=== PATIENT | male | born 1940 | race Caucasian/White ===

== ENCOUNTER 2018-04-12 08:37 | Emergency (ER) | payer MEDICARE, MEDICAID ==
[2018-04-12 08:46] VITALS: BP 171/76
[2018-04-12] MEDS ORDERED: Oxymetazoline 0.05% Nasal Spray 15 ML Bottle NAS ONE (08:49)
--- NOTE | 2018-04-12 09:35 | EDM.PDOC ---
ED HPI GENERAL MEDICAL PROBLEM - General Chief Complaint: ENT Problem Stated Complaint: NOSE BLEED Time Seen by Provider: 04/12/18 08:49 Source of Information: Reports: Patient History Limitations: Reports: No Limitations - History of Present Illness INITIAL COMMENTS - FREE TEXT/NARRATIVE: The patient presents with a nose bleed. This started this morning. It stopped and then it came back. It quit by the time he came in this morning. He has a history of nose bleeds. He has no trauma to his nose. He is not on any blood thinners. His blood pressure looks good. Onset: Sudden Duration: Hour(s): Severity: Moderate Improves with: Reports: None Worsens with: Reports: None Associated Symptoms: Reports: No Other Symptoms - Related Data Allergies Allergy/AdvReac Type Severity Reaction Status Date / Time codeine Allergy Cannot Verified 04/12/18 08:43 Remember Home Meds: Home Meds Atenolol [Tenormin] 07/26/15 [History] Dutasteride [Avodart] 07/26/15 [History] Lisinopril [Prinivil] 07/26/15 [History] Montelukast [Singulair] 07/26/15 [History] atorvaSTATin [Lipitor] 07/26/15 [History] Past Medical History HEENT History: Reports: Epistaxis, Impaired Vision Cardiovascular History: Reports: High Cholesterol, Hypertension Respiratory History: Reports: COPD Genitourinary History: Reports: Prostate Disorder Musculoskeletal History: Reports: Arthritis Oncologic (Cancer) History: Reports: Other (See Below) Other Oncologic History: occular - Past Surgical History HEENT Surgical History: Reports: Other (See Below) Musculoskeletal Surgical History: Reports: Hip Replacement Social & Family History - Tobacco Use Smoking Status *Q: Former Smoker Used Tobacco, but Quit: Yes Month/Year Tobacco Last Used: 1999 ED ROS ENT - Review of Systems Review Of Systems: See Below Constitutional: Reports: No Symptoms HEENT: Reports: Nosebleed Respiratory: Reports: No Symptoms Cardiovascular: Reports: No Symptoms Endocrine: Reports: No Symptoms GI/Abdominal: Reports: No Symptoms : Reports: No Symptoms Musculoskeletal: Reports: No Symptoms Neurological: Reports: No Symptoms ED EXAM, ENT - Physical Exam Exam: See Below Exam Limited By: No Limitations General Appearance: Alert, No Apparent Distress Ears: Normal External Exam Nose: Active Bleeding (mild bleeding from the anterior septum in the left nostril) Head: Atraumatic, Normocephalic Neck: Normal Inspection Respiratory/Chest: No Respiratory Distress ED ENT PROCEDURES - Epistaxis Procedure Indication: Epistaxis Recent anticoagulants/antiplatlets: No Uncontrolled HTN: No Recent septal/nasal surgery: No Site of bleeding: Left Nare, Anterior Topical Meds: Other (Afrin) Ice pack to area: No Chemical cautery: Silver Nitrate Topical Complications: No Course - Vital Signs Last Recorded V/S: Last Vital Signs Temp 97.4 F 04/12/18 08:44 Pulse 76 04/12/18 08:44 Resp 18 04/12/18 08:44 BP 171/76 H 04/12/18 08:44 Pulse Ox 96 04/12/18 08:44 - Orders/Labs/Meds Meds: Medications Discontinued Medications Generic Name Dose Route Start Last Admin Trade Name Freq PRN Reason Stop Dose Admin Oxymetazoline HCl 1 ml 04/12/18 08:49 04/12/18 08:52 Afrin Original 0.05% Nasal [place] MAIDA 04/12/18 08:50 2 spray ONETIME ONE Administration - Re-Assessments/Exams Free Text/Narrative Re-Assessment/Exam: 04/12/18 09:33 I used some silver nitrate to stop the bleeding. He is doing good. I will put some antibiotic ointment in each nostril and have him follow up with ENT. Departure - Departure Time of Disposition: 09:35 Disposition: Home, Self-Care 01 Condition: Good Clinical Impression: Epistaxis - Discharge Information *PRESCRIPTION DRUG MONITORING PROGRAM REVIEWED*: Not Applicable *COPY OF PRESCRIPTION DRUG MONITORING REPORT IN PATIENT NOEMY: Not Applicable Referrals: Kath Stone MD [Primary Care Provider] - 1 Week Additional Instructions: Put antibiotic ointment in each nostril 2 times per day for 3 days. Follow up with your doctor for a referral to ENT. Please return if you are worse.
== END 2018-04-12 09:51 | disposition home or self-care (01) ==
LOC: JD.ED 08:37
DX: R04.0 Epistaxis (principal); I10 Essential (primary) hypertension; E78.00 Pure hypercholesterolemia, unspecified; Z88.5 Allergy status to narcotic agent
CPT/HCPCS: 30901; 99283; A9270

== ENCOUNTER 2018-07-01 08:34 | Emergency (ER) | payer MEDICARE, MEDICAID ==
[2018-07-01 08:45] VITALS: BP 155/90
--- NOTE | 2018-07-01 09:03 | EDM.PDOC ---
ED HPI GENERAL MEDICAL PROBLEM - General Chief Complaint: ENT Problem Stated Complaint: NOSE BLEED Time Seen by Provider: 07/01/18 08:54 Source of Information: Reports: Patient History Limitations: Reports: No Limitations - History of Present Illness INITIAL COMMENTS - FREE TEXT/NARRATIVE: 77-year-old male presents to the ED with sudden onset of left-sided nosebleed about 0755 hrs. this morning. No known trauma. Spontaneous occurrence which is happened several times in the past. He has seen ENT in consultation and it has had electrocautery therapy in the past. Is currently on no aspirin or blood thinners. No recent colds coughs or upper respiratory tract infection. Onset: Today Onset Date: 07/01/18 Onset Time: 07:55 Duration: Minutes: Location: Reports: Face Quality: Reports: Other Severity: Moderate (No pain) Improves with: Reports: Other (Firm pressure seem to help get it stopped.) Worsens with: Reports: None Context: Reports: Other. 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: Other (see below) (None.) - Related Data Allergies Allergy/AdvReac Type Severity Reaction Status Date / Time codeine Allergy Cannot Verified 07/01/18 08:41 Remember Home Meds: Home Meds Atenolol [Tenormin] 25 mg PO DAILY 07/26/15 [History] Dutasteride [Avodart] 0.5 mg PO DAILY 07/26/15 [History] Lisinopril [Prinivil] 5 mg PO DAILY 07/26/15 [History] Montelukast [Singulair] 10 mg PO DAILY 07/26/15 [History] atorvaSTATin [Lipitor] 20 mg PO DAILY 07/26/15 [History] FLUoxetine [PROzac] 10 mg PO DAILY 04/12/18 [History] Isosorbide Mononitrate [Imdur] 30 mg PO DAILY 04/12/18 [History] Omeprazole 20 mg PO BIDAC 04/12/18 [History] Fluticasone/Vilanterol [Breo Ellipta 200-25 Mcg INH] 1 puff INH DAILY 07/01/18 [ History] Latanoprost/Pf [Latanoprost 0.005% Eye Drop] 1 drop EYEBOTH BEDTIME 07/01/18 [ History] Past Medical History HEENT History: Reports: Epistaxis (Recurrent epistaxis left side.), Impaired Vision Cardiovascular History: Reports: Angina, High Cholesterol, Hypertension Respiratory History: Reports: COPD Genitourinary History: Reports: Prostate Disorder (On Avodart for this.) Musculoskeletal History: Reports: Arthritis Oncologic (Cancer) History: Reports: Other (See Below) Other Oncologic History: occular - Past Surgical History HEENT Surgical History: Reports: Other (See Below) Musculoskeletal Surgical History: Reports: Hip Replacement Social & Family History - Tobacco Use Smoking Status *Q: Never Smoker - Caffeine Use Caffeine Use: Reports: Coffee - Recreational Drug Use Recreational Drug Use: No - Living Situation & Occupation Living situation: Reports: Single Occupation: Retired ED ROS ENT - Review of Systems Review Of Systems: See Below Constitutional: Denies: Fever, Chills, Malaise, Weakness, Fatigue, Decreased Appetite, Weight Loss HEENT: Reports: Nosebleed (Recurrent problems with left nasal bleeding.) Respiratory: Denies: Shortness of Breath, Wheezing, Pleuritic Chest Pain Cardiovascular: Reports: Chest Pain, Blood Pressure Problem, Dyspnea on Exertion. Denies: Claudication, Edema, Lightheadedness, Orthopnea Endocrine: Reports: No Symptoms GI/Abdominal: Reports: No Symptoms : Reports: Frequency, Other Musculoskeletal: Reports: Joint Pain Skin: Reports: No Symptoms (Knees hips and low back.) Neurological: Reports: No Symptoms Psychiatric: Reports: No Symptoms Hematologic/Lymphatic: Reports: No Symptoms Immunologic: Reports: No Symptoms ED EXAM, ENT - Physical Exam Exam: See Below Exam Limited By: No Limitations General Appearance: Alert, WD/WN, No Apparent Distress Nose: Other (Inspection of the naris shows area of erythema with active bleeding from the anterior septum of the right naris. ) Mouth/Throat: Normal Inspection, Normal Gums Head: Atraumatic, Normocephalic Neck: Normal Inspection, Supple, Non-Tender, Full Range of Motion. No: Lymphadenopathy (L), Lymphadenopathy (R) Respiratory/Chest: No Respiratory Distress, Lungs Clear, Normal Breath Sounds, No Accessory Muscle Use, Chest Non-Tender Course - Vital Signs Last Recorded V/S: Last Vital Signs Temp 37.1 C 07/01/18 08:44 Pulse 75 07/01/18 08:44 Resp 18 07/01/18 08:44 BP 155/90 H 07/01/18 08:44 Pulse Ox 93 L 07/01/18 08:44 - Radiology Interpretation Free Text/Narrative:: 77-year-old male presents to the ED with acute left-sided nasal hemorrhage. This morning. He's had problems with left-sided nosebleed several times in the last few years. 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 Examination today reveals active bleeding from the very anterior superior surface of the nasal septum on the left side. Area was cauterized with silver nitrate which seemed to get under control. - Re-Assessments/Exams Free Text/Narrative Re-Assessment/Exam: 07/01/18 09:08 upon reviewed no further bleeding has occurred. Therefore be discharged to home. He already has a AYR gel at home which you placement of the nares once daily at bedtime. Follow-up as necessary. Departure - Departure Time of Disposition: 09:09 Disposition: Home, Self-Care 01 Condition: Fair Clinical Impression: Anterior epistaxis - Discharge Information *PRESCRIPTION DRUG MONITORING PROGRAM REVIEWED*: No *COPY OF PRESCRIPTION DRUG MONITORING REPORT IN PATIENT NOEMY: No Instructions: Nosebleed, [id number] Referrals: Kath Stone MD [Primary Care Provider] - Forms: ED Department Discharge Additional Instructions: Evaluation the emergency room today in regards to development of a left-sided nosebleed shortly before 8:00 this morning. This is again on the left side which is almost always decide the bleeds on. Examination reveals active bleeding from the anterior nasal septum. This area was cauterized with silver nitrate to bring it under control. On review no further bleeding is evident. Treatment is to use AYR gel into both sides of the nose at bedtime for the next week or Polysporin ointment. Ointment is placed with the aid of a Q-tip up into the nose and does the same thing. Follow-up with ENT surgeon if further bleeding continues.
== END 2018-07-01 09:25 | disposition home or self-care (01) ==
LOC: JD.ED 08:34
DX: R04.0 Epistaxis (principal); I10 Essential (primary) hypertension; E78.00 Pure hypercholesterolemia, unspecified; M19.90 Unspecified osteoarthritis, unspecified site; Z79.899 Other long term (current) drug therapy; Z88.5 Allergy status to narcotic agent
CPT/HCPCS: 30901; 99283-25

== ENCOUNTER 2018-09-29 12:14 | Observation (INO) | payer MEDICARE, MEDICAID ==
[2018-09-29] MEDS ORDERED: Sodium Chloride 0.9% 10 ML Syringe FLUSH PRN (12:39)
[2018-09-29] MEDS ORDERED: Sodium Chloride 0.9% 1,000 ML IV ONE (12:49)
--- NOTE | 2018-09-29 12:55 | EDM.PDOC ---
ED HPI GENERAL MEDICAL PROBLEM - General Chief Complaint: Respiratory Problem Stated Complaint: SOB/CHILLS/ BACK PAIN Time Seen by Provider: 09/29/18 12:40 Source of Information: Reports: Patient History Limitations: Reports: No Limitations - History of Present Illness INITIAL COMMENTS - FREE TEXT/NARRATIVE: 77-year-old male presents for evaluation and treatment of cough, shortness of breath and chills. Symptoms have been going on for the last 4 days. Current symptoms include dyspnea on exertion, shortness of breath, nausea and a nonproductive cough. He is also reporting pain across his upper back. Denies any chest pain, vomiting, diarrhea or abdominal pain. Patient did get influenza vaccine this season. PCP is Dr. Stone. bilateral shoulders Pain Score (Numeric/FACES): 4 - Related Data Allergies Allergy/AdvReac Type Severity Reaction Status Date / Time codeine Allergy Cannot Verified 09/29/18 12:29 Remember Home Meds: Home Meds Atenolol [Tenormin] 25 mg PO DAILY 07/26/15 [History] Dutasteride [Avodart] 0.5 mg PO DAILY 07/26/15 [History] Lisinopril [Prinivil] 5 mg PO DAILY 07/26/15 [History] Montelukast [Singulair] 10 mg PO DAILY 07/26/15 [History] atorvaSTATin [Lipitor] 20 mg PO DAILY 07/26/15 [History] FLUoxetine [PROzac] 10 mg PO DAILY 04/12/18 [History] Isosorbide Mononitrate [Imdur] 30 mg PO DAILY 04/12/18 [History] Omeprazole 20 mg PO BIDAC 04/12/18 [History] Fluticasone/Vilanterol [Breo Ellipta 200-25 Mcg INH] 1 puff INH DAILY 07/01/18 [ History] Latanoprost/Pf [Latanoprost 0.005% Eye Drop] 1 drop EYEBOTH BEDTIME 07/01/18 [ History] Past Medical History HEENT History: Reports: Epistaxis, Hard of Hearing, Impaired Vision Cardiovascular History: Reports: Angina, High Cholesterol, Hypertension Respiratory History: Reports: COPD, SOB Gastrointestinal History: Reports: GERD Genitourinary History: Reports: Prostate Disorder Musculoskeletal History: Reports: Arthritis Psychiatric History: Reports: Anxiety Oncologic (Cancer) History: Reports: Other (See Below) Other Oncologic History: occular - Infectious Disease History Infectious Disease History: Reports: Influenza, Measles - Past Surgical History HEENT Surgical History: Reports: Other (See Below) Musculoskeletal Surgical History: Reports: Hip Replacement Social & Family History - Family History Family Medical History: Noncontributory - Tobacco Use Smoking Status *Q: Former Smoker Used Tobacco, but Quit: No - Caffeine Use Caffeine Use: Reports: Coffee - Recreational Drug Use Recreational Drug Use: No - Living Situation & Occupation Living situation: Reports: Single Occupation: Retired ED ROS GENERAL - Review of Systems Review Of Systems: See Below Constitutional: Reports: Chills, Weakness. Denies: Fever HEENT: Denies: Ear Pain, Throat Pain Respiratory: Reports: Shortness of Breath, Cough. Denies: Sputum Cardiovascular: Reports: Dyspnea on Exertion. Denies: Chest Pain GI/Abdominal: Reports: Nausea. Denies: Abdominal Pain, Diarrhea, Vomiting Musculoskeletal: Reports: Back Pain (upper back) ED EXAM, GENERAL - Physical Exam Exam: See Below Exam Limited By: No Limitations General Appearance: Alert, WD/WN, No Apparent Distress Ears: Normal External Exam Nose: Normal Inspection Throat/Mouth: Normal Inspection, Normal Lips, Normal Voice, No Airway Compromise Respiratory/Chest: No Respiratory Distress, Lungs Clear, Normal Breath Sounds Cardiovascular: Normal Peripheral Pulses, No Murmur, Tachycardia Peripheral Pulses: 2+: Posterior Tibial (L), Posterior Tibial (R) GI/Abdominal: Soft, Non-Tender Neurological: Alert, Oriented, Normal Cognition Psychiatric: Normal Affect, Normal Mood Skin Exam: Warm, Dry, Normal Color EKG INTERPRETATION EKG Date: 09/29/18 Time: 13:47 Rhythm: NSR Rate (Beats/Min): 97 [place]: LAD-Left [place] Deviation P-Wave: Present QRS: Normal ST-T: Normal QT: Normal EKG Interpretation Comments: NSR at 97 bpm. First degree AV block. No atrial enlargement. Slight J-point elevation in V2, but no T wave inversion. No ischemic changes. Late transition. Left axis deviation. Left ventricular hypertrophy. No IVCD. QTc within normal limits at 459. Reviewed by myself and Dr. Mart. Course - Vital Signs Last Recorded V/S: Last Vital Signs Temp 101.6 F H 09/29/18 13:50 Pulse 105 H 09/29/18 12:18 Resp 34 H 09/29/18 12:37 BP 168/78 H 09/29/18 12:18 Pulse Ox 95 09/29/18 13:45 - Orders/Labs/Meds Orders: Active Orders 24 hr Category Date Time Status Patient Status [ADT] Routine ADT 09/29/18 14:33 Ordered Cardiac Monitoring [RC] . DIRECTED Care 09/29/18 12:39 Active EKG Documentation Completion [RC] ASDIRECTED Care 09/29/18 12:49 Active Oxygen Therapy [RC] ASDIRECTED Care 09/29/18 12:49 Active Peripheral IV Care [RC] . DIRECTED Care 09/29/18 12:39 Active RT Aerosol Therapy [RC] ASDIRECTED Care 09/29/18 13:45 Active CULTURE BLOOD [BC] Stat Lab 09/29/18 12:55 Received CULTURE BLOOD [BC] Stat Lab 09/29/18 13:00 Received CULTURE URINE [RM] Stat Lab 09/29/18 12:40 Ordered UA W/MICROSCOPIC [URIN] Stat Lab 09/29/18 12:39 Ordered Magnesium Sulfate/Water [Magnesium Sulfate 2 GM in Med 09/29/18 13:43 Active Water 50 ML] 2 gm Premix Bag 1 bag IV ONETIME Sodium Chloride 0.9% [Normal Saline] 1,000 ml Med 09/29/18 12:49 Active IV ONETIME Sodium Chloride 0.9% [Saline Flush] Med 09/29/18 12:39 Active 10 ml FLUSH ASDIRECTED PRN Blood Culture x2 Reflex Set [OM.PC] Stat Oth 09/29/18 12:40 Ordered Peripheral IV Insertion Adult [OM.PC] Routine Oth 09/29/18 12:39 Ordered EKG 12 Lead [EK] Stat Ther 09/29/18 12:49 Ordered Medication Orders Sodium Chloride (Normal Saline) 1,000 mls @ 100 mls/hr IV ONETIME ONE Stop: 09/29/18 22:48 Last Admin: 09/29/18 13:46 Dose: 100 mls/hr Magnesium Sulfate 2 gm/ Premix 50 mls @ 25 mls/hr IV ONETIME ONE Stop: 09/29/18 15:42 Last Admin: 09/29/18 13:52 Dose: 25 mls/hr Sodium Chloride (Saline Flush) 10 ml FLUSH ASDIRECTED PRN PRN Reason: Keep Vein Open Last Admin: 09/29/18 13:46 Dose: 10 ml Labs: Laboratory Tests 09/29/18 09/29/18 09/29/18 Range/Units 12:30 12:30 12:30 WBC 10.08 H (4.23-9.07) K/mm3 RBC 4.73 (4.63-6.08) M/mm3 Hgb 13.9 (13.7-17.5) gm/L Hct 41.4 (40.1-51.0) % MCV 87.5 (79.0-92.2) fl MCH 29.4 (25.7-32.2) pg MCHC 33.6 (32.2-35.5) g/dl RDW Std Deviation 41.7 (35.1-43.9) fL Plt Count 178 (163-337) K/mm3 MPV 10.6 (9.4-12.3) fl Neutrophils % (Manual) 91 H (40-60) % Band Neutrophils % 2 (0-10) % Lymphocytes % (Manual) 4 L (20-40) % Atypical Lymphs % 0 % Monocytes % (Manual) 1 L (2-10) % Eosinophils % (Manual) 0 L (0.8-7.0) % Basophils % (Manual) 2 H (0.2-1.2) Platelet Estimate Adequate RBC Morph Comment Normal Sodium 134 L (136-145) mEq/L Potassium 3.4 L (3.5-5.1) mEq/L Chloride 98 (98-107) mEq/L Carbon Dioxide 22 (21-32) mEq/L Anion Gap 17.4 H (5-15) BUN 15 (7-18) mg/dL Creatinine 1.1 (0.7-1.3) mg/dL Est Cr Clr Drug Dosing 49.14 mL/min Estimated GFR (MDRD) > 60 (>60) mL/min BUN/Creatinine Ratio 13.6 L (14-18) Glucose 174 H (83-115) mg/dL Lactic Acid (0.4-2.0) mmol/L Calcium 8.6 (8.5-10.1) mg/dL Magnesium 1.6 L (1.8-2.4) mg/dl Total Bilirubin 1.6 H (0.2-1.0) mg/dL AST 34 (15-37) U/L ALT 36 (16-63) U/L Alkaline Phosphatase 88 (46-116) U/L C-Reactive Protein 19.4 H* (<1.0) mg/dL NT-Pro-B Natriuret Pep 1813 H (0-450) pg/mL Total Protein 7.2 (6.4-8.2) g/dl Albumin 3.2 L (3.4-5.0) g/dl Globulin 4.0 gm/dL Albumin/Globulin Ratio 0.8 L (1-2) Mycoplasma pneumon IgM Negative (NEGATIVE) 09/29/18 Range/Units 12:55 WBC (4.23-9.07) K/mm3 RBC (4.63-6.08) M/mm3 Hgb (13.7-17.5) gm/L Hct (40.1-51.0) % MCV (79.0-92.2) fl MCH (25.7-32.2) pg MCHC (32.2-35.5) g/dl RDW Std Deviation (35.1-43.9) fL Plt Count (163-337) K/mm3 MPV (9.4-12.3) fl Neutrophils % (Manual) (40-60) % Band Neutrophils % (0-10) % Lymphocytes % (Manual) (20-40) % Atypical Lymphs % % Monocytes % (Manual) (2-10) % Eosinophils % (Manual) (0.8-7.0) % Basophils % (Manual) (0.2-1.2) Platelet Estimate RBC Morph Comment Sodium (136-145) mEq/L Potassium (3.5-5.1) mEq/L Chloride (98-107) mEq/L Carbon Dioxide (21-32) mEq/L Anion Gap (5-15) BUN (7-18) mg/dL Creatinine (0.7-1.3) mg/dL Est Cr Clr Drug Dosing mL/min Estimated GFR (MDRD) (>60) mL/min BUN/Creatinine Ratio (14-18) Glucose (83-115) mg/dL Lactic Acid 1.4 (0.4-2.0) mmol/L Calcium (8.5-10.1) mg/dL Magnesium (1.8-2.4) mg/dl Total Bilirubin (0.2-1.0) mg/dL AST (15-37) U/L ALT (16-63) U/L Alkaline Phosphatase (46-116) U/L C-Reactive Protein (<1.0) mg/dL NT-Pro-B Natriuret Pep (0-450) pg/mL Total Protein (6.4-8.2) g/dl Albumin (3.4-5.0) g/dl Globulin gm/dL Albumin/Globulin Ratio (1-2) Mycoplasma pneumon IgM (NEGATIVE) Meds: Medications Generic Name Dose Route Start Last Admin Trade Name Freq PRN Reason Stop Dose Admin Sodium Chloride 1,000 mls @ 100 mls/hr 09/29/18 12:49 09/29/18 13:46 Normal Saline IV 09/29/18 22:48 100 mls/hr ONETIME ONE Administration Magnesium Sulfate 2 gm/ Premix 50 mls @ 25 mls/hr 09/29/18 13:43 09/29/18 13: 52 IV 09/29/18 15:42 25 mls/hr ONETIME ONE Administration Sodium Chloride 10 ml 09/29/18 12:39 09/29/18 13:46 Saline Flush FLUSH 10 ml ASDIRECTED PRN Administration Keep Vein Open Discontinued Medications Generic Name Dose Route Start Last Admin Trade Name Freq PRN Reason Stop Dose Admin Acetaminophen 650 mg 09/29/18 13:42 09/29/18 13:50 Tylenol PO 09/29/18 13:43 650 mg NOW STA Administration Albuterol 2.5 mg 09/29/18 13:45 09/29/18 13:52 Proventil Neb Soln NEB 09/29/18 13:46 2.5 mg ONETIME ONE Administration Ceftriaxone Sodium 2 gm/ 100 mls @ 200 mls/hr 09/29/18 13:03 09/29/18 13:46 Sodium Chloride IV 09/29/18 13:32 200 mls/hr NOW STA Administration - Radiology Interpretation Free Text/Narrative:: Chest: Portable view of the chest was obtained. Comparison: No prior chest x-ray, previous chest CT of 01/04/13 is available. Incidental azygos lobe is seen. Heart size is slightly enlarged. Lungs are clear with no acute parenchymal change. Bony structures are grossly intact. Previous cholecystectomy is seen. Impression: 1. Slight cardiomegaly and other incidental findings. Nothing acute is appreciated on portable chest x-ray. - Re-Assessments/Exams Free Text/Narrative Re-Assessment/Exam: 09/29/18 14:26 Reviewed the labs, EKG and imaging with the patient. Even though his chest x- ray is negative at this time for pneumonia, I am highly suspicious with his dyspnea on exertion, cough, fever and slightly elevated white blood cell count. His oxygen sats were in the upper 80s to low 90s on room air upon arrival. With exertion he will drop into the 70s. I do feel he should be admitted. I did give him some Rocephin here in the ER. Blood and urine cultures are pending. Influenza is negative. Dr. Oneill has come to see the patient in the ED. Agrees to the observation admission. Departure - Departure Time of Disposition: 14:30 Disposition: Refer to Observation Condition: Fair Clinical Impression: Pneumonia, Hypomagnesemia, Hypoxia - Discharge Information *PRESCRIPTION DRUG MONITORING PROGRAM REVIEWED*: No *COPY OF PRESCRIPTION DRUG MONITORING REPORT IN PATIENT NOEMY: No Referrals: Kath Stone MD [Primary Care Provider] - Forms: ED Department Discharge Additional Instructions: Patient admitted to Dr. Oneill observation for suspected pneumonia with hypoxia and hypomagnesemia. - My Orders Last 24 Hours: My Active Orders 09/29/18 12:39 Cardiac Monitoring [RC] . DIRECTED Peripheral IV Care [RC] . DIRECTED UA W/MICROSCOPIC [URIN] Stat Sodium Chloride 0.9% [Saline Flush] 10 ml FLUSH ASDIRECTED PRN Peripheral IV Insertion Adult [OM.PC] Routine 09/29/18 12:40 CULTURE URINE [RM] Stat Blood Culture x2 Reflex Set [OM.PC] Stat 09/29/18 12:49 EKG Documentation Completion [RC] ASDIRECTED Oxygen Therapy [RC] ASDIRECTED Sodium Chloride 0.9% [Normal Saline] 1,000 ml IV ONETIME EKG 12 Lead [EK] Stat 09/29/18 12:55 CULTURE BLOOD [BC] Stat 09/29/18 13:00 CULTURE BLOOD [BC] Stat 09/29/18 13:43 Magnesium Sulfate/Water [Magnesium Sulfate 2 GM in Water 50 ML] 2 gm Premix Bag 1 bag IV ONETIME 09/29/18 13:45 RT Aerosol Therapy [RC] ASDIRECTED 09/29/18 14:33 Patient Status [ADT] Routine - Assessment/Plan Last 24 Hours: My Active Orders 09/29/18 12:39 Cardiac Monitoring [RC] . DIRECTED Peripheral IV Care [RC] . DIRECTED UA W/MICROSCOPIC [URIN] Stat Sodium Chloride 0.9% [Saline Flush] 10 ml FLUSH ASDIRECTED PRN Peripheral IV Insertion Adult [OM.PC] Routine 09/29/18 12:40 CULTURE URINE [RM] Stat Blood Culture x2 Reflex Set [OM.PC] Stat 09/29/18 12:49 EKG Documentation Completion [RC] ASDIRECTED Oxygen Therapy [RC] ASDIRECTED Sodium Chloride 0.9% [Normal Saline] 1,000 ml IV ONETIME EKG 12 Lead [EK] Stat 09/29/18 12:55 CULTURE BLOOD [BC] Stat 09/29/18 13:00 CULTURE BLOOD [BC] Stat 09/29/18 13:43 Magnesium Sulfate/Water [Magnesium Sulfate 2 GM in Water 50 ML] 2 gm Premix Bag 1 bag IV ONETIME 09/29/18 13:45 RT Aerosol Therapy [RC] ASDIRECTED 09/29/18 14:33 Patient Status [ADT] Routine
[2018-09-29] MEDS ORDERED: cefTRIAXone 2 GM in Sodium Chloride 0.9% 100 ML IV STA (13:03)
--- NOTE | 2018-09-29 13:32 | CR ---
Chest: Portable view of the chest was obtained. Comparison: No prior chest x-ray, previous chest CT of 01/04/13 is available. Incidental azygos lobe is seen. Heart size is slightly enlarged. Lungs are clear with no acute parenchymal change. Bony structures are grossly intact. Previous cholecystectomy is seen. Impression: 1. Slight cardiomegaly and other incidental findings. Nothing acute is appreciated on portable chest x-ray. Diagnostic code #2
[2018-09-29] MEDS ORDERED: Acetaminophen 325 MG Tab PO STA (13:42)
[2018-09-29] MEDS ORDERED: Magnesium Sulfate/Water 2 GM in Premix Bag 1 BAG IV ONE (13:43)
[2018-09-29] MEDS ORDERED: Albuterol 0.083% 2.5 MG/3 ML Neb Soln NEB ONE (13:45)
--- NOTE | 2018-09-29 17:19 | PCM.HP ---
H&P History of Present Illness - General Date of Service: 09/29/18 Admit Problem/Dx: Admission Diagnosis/Problem Admission Diagnosis/Problem Pneumonia Source of Information: Patient, Family, Provider - History of Present Illness Initial Comments - Free Text/Narative: 77 year old male with possible sick contact, presents with SOB, non productive cough. He admits to chills but denies fever. He has experienced generalized weakness, and shortness of breath. The patient has had the flu vaccine this season. He is a full code and will be admitted to observation. Onset of Symptoms: Reports: Gradual Symptom Onset Date: 09/22/18 Duration of Symptoms: Reports: Day(s):, Getting Worse Location: Reports: Chest Quality: Reports: Same as Previous Episode Severity: Moderate Improves with: Reports: Medication Worsens with: Reports: None Context: Reports: Sick Contact (unknown) Associated Symptoms: Reports: Cough, Fever/Chills, Loss of Appetite, Malaise, Nausea/Vomiting, Weakness bilateral shoulders Pain Score (Numeric/FACES): 4 - Related Data Allergies/Adverse Reactions: Allergies Allergy/AdvReac Type Severity Reaction Status Date / Time codeine Allergy Cannot Verified 09/29/18 12:29 Remember Home Medications: Home Meds Atenolol [Tenormin] 25 mg PO DAILY 07/26/15 [History] Dutasteride [Avodart] 0.5 mg PO DAILY 07/26/15 [History] Lisinopril [Prinivil] 2.5 mg PO DAILY 07/26/15 [History] Montelukast [Singulair] 10 mg PO DAILY 07/26/15 [History] atorvaSTATin [Lipitor] 20 mg PO DAILY 07/26/15 [History] FLUoxetine [PROzac] 10 mg PO DAILY 04/12/18 [History] Isosorbide Mononitrate [Imdur] 30 mg PO DAILY 04/12/18 [History] Omeprazole 20 mg PO BIDAC 04/12/18 [History] Fluticasone/Vilanterol [Breo Ellipta 200-25 Mcg INH] 1 puff INH DAILY 07/01/18 [ History] Latanoprost/Pf [Latanoprost 0.005% Eye Drop] 1 drop EYEBOTH BEDTIME 07/01/18 [ History] cycloSPORINE [Restasis] 1 drop EYEBOTH BID 09/29/18 [History] Past Medical History HEENT History: Reports: Epistaxis, Glaucoma, Hard of Hearing, Impaired Vision Cardiovascular History: Reports: Angina, High Cholesterol, Hypertension Respiratory History: Reports: COPD, SOB Gastrointestinal History: Reports: GERD Genitourinary History: Reports: Prostate Disorder Musculoskeletal History: Reports: Arthritis Psychiatric History: Reports: Depression Endocrine/Metabolic History: Reports: None Hematologic History: Reports: Blood Transfusion(s) Oncologic (Cancer) History: Reports: Other (See Below) Other Oncologic History: occular cancer, fixed with radiation therapy Dermatologic History: Reports: None - Infectious Disease History Infectious Disease History: Reports: Influenza, Measles, Mumps, Pertussis ( Whooping Cough) - Past Surgical History Cardiovascular Surgical History: Reports: Other (See Below) Other Cardiovascular Surgeries/Procedures: angiogram attempt but decided to not go ahead with stent placement d/t potential damage Respiratory Surgical History: Reports: None GI Surgical History: Reports: None Male Surgical History: Reports: None Musculoskeletal Surgical History: Reports: Hip Replacement Other Musculoskeletal Surgeries/Procedures:: bilateral Social & Family History - Family History Family Medical History: Noncontributory - Tobacco Use Smoking Status *Q: Former Smoker Years of Tobacco use: 30 Packs/Tins Daily: 2 Used Tobacco, but Quit: Yes Month/Year Tobacco Last Used: quit 20 years ago Second Hand Smoke Exposure: No - Caffeine Use Caffeine Use: Reports: Tea - Recreational Drug Use Recreational Drug Use: No - Living Situation & Occupation Living situation: Reports: Single Occupation: Retired H&P Review of Systems - Review of Systems: Review Of Systems: See Below General: Reports: Chills, Malaise, Weakness, Fatigue HEENT: Reports: No Symptoms Pulmonary: Reports: Shortness of Breath, Cough Cardiovascular: Reports: No Symptoms Gastrointestinal: Reports: No Symptoms Genitourinary: Reports: No Symptoms Musculoskeletal: Reports: No Symptoms Skin: Reports: No Symptoms Psychiatric: Reports: No Symptoms Neurological: Reports: No Symptoms Hematologic/Lymphatic: Reports: No Symptoms Immunologic: Reports: No Symptoms Exam - Exam Exam: See Below - Vital Signs Vital Signs: Last Vital Signs Temp 36.9 C 09/29/18 15:13 Pulse 97 09/29/18 15:13 Resp 24 H 09/29/18 15:13 BP 149/66 H 09/29/18 15:13 Pulse Ox 94 L 09/29/18 15:13 Weight: 82.055 kg - Exam Quality Assessment: Supplemental Oxygen General: Alert, Oriented, Cooperative HEENT: Conjunctiva Clear, EOMI, Nares Patent, Normal Nasal Septum, Pupils Equal , Pupils Reactive, PERRLA Neck: Trachea Midline Lungs: Normal Respiratory Effort, Decreased Breath Sounds, Rhonchi Cardiovascular: Regular Rate GI/Abdominal Exam: Normal Bowel Sounds, Soft, Non-Tender, No Organomegaly, No Distention (Male) Exam: Deferred Rectal (Males) Exam: Deferred Back Exam: Normal Inspection Extremities: Normal Inspection, Non-Tender, Normal Capillary Refill Skin: Warm Neurological: Cranial Nerves Intact Neuro Extensive - Mental Status: Alert, Oriented x3, Normal Mood/Affect, Normal Cognition, Memory Intact Neuro Extensive - Motor, Sensory, Reflexes: CN II-XII Intact Psychiatric: Alert, Normal Affect, Normal Mood - Patient Data Lab Results Last 24 hrs: Laboratory Results - last 24 hr 09/29/18 09/29/18 09/29/18 Range/Units 12:30 12:30 12:30 WBC 10.08 H (4.23-9.07) K/mm3 RBC 4.73 (4.63-6.08) M/mm3 Hgb 13.9 (13.7-17.5) gm/L Hct 41.4 (40.1-51.0) % MCV 87.5 (79.0-92.2) fl MCH 29.4 (25.7-32.2) pg MCHC 33.6 (32.2-35.5) g/dl RDW Std Deviation 41.7 (35.1-43.9) fL Plt Count 178 (163-337) K/mm3 MPV 10.6 (9.4-12.3) fl Neutrophils % (Manual) 91 H (40-60) % Band Neutrophils % 2 (0-10) % Lymphocytes % (Manual) 4 L (20-40) % Atypical Lymphs % 0 % Monocytes % (Manual) 1 L (2-10) % Eosinophils % (Manual) 0 L (0.8-7.0) % Basophils % (Manual) 2 H (0.2-1.2) Platelet Estimate Adequate RBC Morph Comment Normal Sodium 134 L (136-145) mEq/L Potassium 3.4 L (3.5-5.1) mEq/L Chloride 98 (98-107) mEq/L Carbon Dioxide 22 (21-32) mEq/L Anion Gap 17.4 H (5-15) BUN 15 (7-18) mg/dL Creatinine 1.1 (0.7-1.3) mg/dL Est Cr Clr Drug Dosing 49.14 mL/min Estimated GFR (MDRD) > 60 (>60) mL/min BUN/Creatinine Ratio 13.6 L (14-18) Glucose 174 H (83-115) mg/dL Lactic Acid (0.4-2.0) mmol/L Calcium 8.6 (8.5-10.1) mg/dL Magnesium 1.6 L (1.8-2.4) mg/dl Total Bilirubin 1.6 H (0.2-1.0) mg/dL AST 34 (15-37) U/L ALT 36 (16-63) U/L Alkaline Phosphatase 88 (46-116) U/L C-Reactive Protein 19.4 H* (<1.0) mg/dL NT-Pro-B Natriuret Pep 1813 H (0-450) pg/mL Total Protein 7.2 (6.4-8.2) g/dl Albumin 3.2 L (3.4-5.0) g/dl Globulin 4.0 gm/dL Albumin/Globulin Ratio 0.8 L (1-2) Mycoplasma pneumon IgM Negative (NEGATIVE) 09/29/18 Range/Units 12:55 WBC (4.23-9.07) K/mm3 RBC (4.63-6.08) M/mm3 Hgb (13.7-17.5) gm/L Hct (40.1-51.0) % MCV (79.0-92.2) fl MCH (25.7-32.2) pg MCHC (32.2-35.5) g/dl RDW Std Deviation (35.1-43.9) fL Plt Count (163-337) K/mm3 MPV (9.4-12.3) fl Neutrophils % (Manual) (40-60) % Band Neutrophils % (0-10) % Lymphocytes % (Manual) (20-40) % Atypical Lymphs % % Monocytes % (Manual) (2-10) % Eosinophils % (Manual) (0.8-7.0) % Basophils % (Manual) (0.2-1.2) Platelet Estimate RBC Morph Comment Sodium (136-145) mEq/L Potassium (3.5-5.1) mEq/L Chloride (98-107) mEq/L Carbon Dioxide (21-32) mEq/L Anion Gap (5-15) BUN (7-18) mg/dL Creatinine (0.7-1.3) mg/dL Est Cr Clr Drug Dosing mL/min Estimated GFR (MDRD) (>60) mL/min BUN/Creatinine Ratio (14-18) Glucose (83-115) mg/dL Lactic Acid 1.4 (0.4-2.0) mmol/L Calcium (8.5-10.1) mg/dL Magnesium (1.8-2.4) mg/dl Total Bilirubin (0.2-1.0) mg/dL AST (15-37) U/L ALT (16-63) U/L Alkaline Phosphatase (46-116) U/L C-Reactive Protein (<1.0) mg/dL NT-Pro-B Natriuret Pep (0-450) pg/mL Total Protein (6.4-8.2) g/dl Albumin (3.4-5.0) g/dl Globulin gm/dL Albumin/Globulin Ratio (1-2) Mycoplasma pneumon IgM (NEGATIVE) Result Diagrams: 09/30/18 06:09 09/30/18 06:09 Tommy Results Last 24 hrs: Microbiology 09/29/18 12:30 Influenza Type A Antigen Screen - Final Nasal, Unspecified NEGATIVE INFLUENZA A VIRUS AG Influenza Type B Antigen Screen - Final NEGATIVE INFLUENZA B VIRUS AG - Problem List (1) CAD (coronary artery disease) SNOMED Code(s): 01865948 ICD Code: I25.10 - ATHSCL HEART DISEASE OF [place] CORONARY ARTERY W/O ANG PCTRS Status: Acute Current Visit: Yes (2) COPD (chronic obstructive pulmonary disease) SNOMED Code(s): 29507223 ICD Code: J44.9 - CHRONIC OBSTRUCTIVE PULMONARY DISEASE, UNSPECIFIED Status : Acute Current Visit: Yes (3) GERD (gastroesophageal reflux disease) SNOMED Code(s): 340224230 ICD Code: K21.9 - GASTRO-ESOPHAGEAL REFLUX DISEASE WITHOUT ESOPHAGITIS Status: Acute Current Visit: Yes (4) Hypomagnesemia SNOMED Code(s): 039732401 ICD Code: E83.42 - HYPOMAGNESEMIA Status: Acute Current Visit: Yes (5) Hypoxia SNOMED Code(s): 269673882 ICD Code: R09.02 - HYPOXEMIA Status: Acute Current Visit: Yes (6) Pneumonia SNOMED Code(s): 479261912 ICD Code: J18.9 - PNEUMONIA, UNSPECIFIED ORGANISM Status: Acute Current Visit: Yes Problem List Initiated/Reviewed/Updated: Yes Orders Last 24hrs: Active Orders 24 hr Category Date Time Status Patient Status [ADT] Routine ADT 09/29/18 14:33 Active Cardiac Monitoring [RC] . DIRECTED Care 09/29/18 12:39 Active EKG Documentation Completion [RC] ASDIRECTED Care 09/29/18 12:49 Active Oxygen Therapy [RC] ASDIRECTED Care 09/29/18 12:49 Active RT Aerosol Therapy [RC] ASDIRECTED Care 09/29/18 13:45 Active CULTURE BLOOD [BC] Stat Lab 09/29/18 12:55 Received CULTURE BLOOD [BC] Stat Lab 09/29/18 13:00 Received CULTURE URINE [RM] Stat Lab 09/29/18 12:40 Ordered UA W/MICROSCOPIC [URIN] Stat Lab 09/29/18 12:39 Ordered Sodium Chloride 0.9% [Normal Saline] 1,000 ml Med 09/29/18 12:49 Active IV ONETIME Sodium Chloride 0.9% [Saline Flush] Med 09/29/18 12:39 Active 10 ml FLUSH ASDIRECTED PRN Blood Culture x2 Reflex Set [OM.PC] Stat Oth 09/29/18 12:40 Ordered Peripheral IV Insertion Adult [OM.PC] Routine Oth 09/29/18 12:39 Ordered Resuscitation Status Routine Resus Stat 09/29/18 15:37 Ordered EKG 12 Lead [EK] Stat Ther 09/29/18 12:49 Ordered Medication Orders Sodium Chloride (Normal Saline) 1,000 mls @ 100 mls/hr IV ONETIME ONE Stop: 09/29/18 22:48 Last Admin: 09/29/18 13:46 Dose: 100 mls/hr Sodium Chloride (Saline Flush) 10 ml FLUSH ASDIRECTED PRN PRN Reason: Keep Vein Open Last Admin: 09/29/18 13:46 Dose: 10 ml Assessment/Plan Comment:: Impression: Query CAP-nonproductive cough; history of COPD Empiric treatment with Zithromax/Rocephin Former tobacco smoker > 20 years ago. Denies sick contacts; s/p Influenza vaccine Chronic HTN HLD GERD Plan: IV ATBs IVF Resp infection work up Home meds Daily Labs Droplet Isolation DVT/GI prophylaxis
[2018-09-29] MEDS ORDERED: hydrALAZINE 20 MG/ML SDV IVPUSH PRN (17:51)
[2018-09-29] MEDS ORDERED: Magnesium Sulfate/Water 4 GM in Premix Bag 1 BAG IV ONE (18:38)
[2018-09-29] MEDS: Azithromycin 500 MG in Sodium Chloride 0.9% 250 ML IV SCH (18:48)
[2018-09-29] MEDS ORDERED: Enoxaparin 30 MG/0.3 ML Syringe SUBCUT SCH (19:00)
[2018-09-29] MEDS: Acetaminophen 325 MG Tab PO PRN (20:39)
[2018-09-29] MEDS ORDERED: diphenhydrAMINE 50 MG/ML SDV ONE (21:33)
[2018-09-30] MEDS: Enoxaparin 40 MG/0.4 ML Syringe SUBCUT SCH (08:24)
[2018-09-30] MEDS: DUTASTERIDE 0.5 MG PO SCH (08:27)
--- NOTE | 2018-09-30 08:30 | CR ---
Chest: Frontal view of the chest was obtained. Comparison: Prior chest x-ray of 09/29/18. Increasing density within the right chest is seen from prior exam. Left lung remains clear. Heart size appears slightly enlarged. Bony structures are grossly intact. Incidental azygos lobe is again noted. Impression: 1. Mild increasing density within the right lung from prior study. Please correlate if patient has infectious symptoms for this to represent bronchitis/pneumonia. 2. Other incidental findings. Diagnostic code #3
[2018-09-30] MEDS ORDERED: Magnesium Sulfate/Water 4 GM in Premix Bag 1 BAG IV ONE (09:00)
[2018-09-30] MEDS: ISOSORBIDE MONONITRATE 30 MG PO SCH (10:18)
[2018-09-30] MEDS: FLUOXETINE 10 MG PO SCH (10:18)
[2018-09-30] MEDS: ATENOLOL 25 MG PO SCH (10:19)
[2018-09-30] MEDS: MONTELUKAST 10 MG PO SCH (10:20)
[2018-09-30] MEDS: FLUTICASONE INH SCH (11:22)
[2018-09-30] MEDS: VILANTEROL INH SCH (11:22)
[2018-09-30] MEDS ORDERED: cefTRIAXone 2 GM in Sodium Chloride 0.9% 100 ML IV SCH (14:00)
[2018-09-30] MEDS: Acetaminophen 325 MG Tab PO PRN (14:58)
[2018-09-30] MEDS: Azithromycin 500 MG in Sodium Chloride 0.9% 250 ML IV SCH (17:05)
--- NOTE | 2018-09-30 17:06 | PCM.PN ---
- General Info Date of Service: 09/30/18 Functional Status: Reports: Pain Controlled, Tolerating Diet, Ambulating, Urinating - Review of Systems General: Reports: No Symptoms HEENT: Reports: No Symptoms Pulmonary: Reports: Shortness of Breath Cardiovascular: Reports: No Symptoms Gastrointestinal: Reports: No Symptoms Genitourinary: Reports: No Symptoms Musculoskeletal: Reports: No Symptoms Skin: Reports: No Symptoms Neurological: Reports: No Symptoms Psychiatric: Reports: No Symptoms - Patient Data Vitals - Most Recent: Last Vital Signs Temp 37.2 C 09/30/18 14:58 Pulse 77 09/30/18 14:52 Resp 22 H 09/30/18 14:52 BP 108/54 L 09/30/18 14:52 Pulse Ox 94 L 09/30/18 14:52 Weight - Most Recent: 82.055 kg I&O - Last 24 Hours: Intake & Output 09/30/18 09/30/18 09/30/18 06:59 14:59 22:59 Intake Total 1450 920 700 Output Total 850 400 Balance 600 920 300 Lab Results Last 24 Hours: Laboratory Results - last 24 hr 09/29/18 09/30/18 09/30/18 Range/Units 17:10 06:09 06:09 WBC 6.35 (4.23-9.07) K/mm3 RBC 4.56 L (4.63-6.08) M/mm3 Hgb 13.3 L (13.7-17.5) gm/L Hct 40.4 (40.1-51.0) % MCV 88.6 (79.0-92.2) fl MCH 29.2 (25.7-32.2) pg MCHC 32.9 (32.2-35.5) g/dl RDW Std Deviation 43.0 (35.1-43.9) fL Plt Count 167 (163-337) K/mm3 MPV 10.3 (9.4-12.3) fl Neut % (Auto) 75.6 H (34.0-67.9) % Lymph % (Auto) 12.8 L (21.8-53.1) % [place] % (Auto) 10.9 (5.3-12.2) % Eos % (Auto) 0 L (0.8-7.0) Baso % (Auto) 0.2 (0.1-1.2) % Neut # (Auto) 4.81 (1.78-5.38) K/mm3 Lymph # (Auto) 0.81 L (1.32-3.57) K/mm3 [place] # (Auto) 0.69 (0.30-0.82) K/mm3 Eos # (Auto) 0.00 L (0.04-0.54) K/mm3 Baso # (Auto) 0.01 (0.01-0.08) K/mm3 Sodium 137 (136-145) mEq/L Potassium 3.8 (3.5-5.1) mEq/L Chloride 103 (98-107) mEq/L Carbon Dioxide 23 (21-32) mEq/L Anion Gap 14.8 (5-15) BUN 15 (7-18) mg/dL Creatinine 1.0 (0.7-1.3) mg/dL Est Cr Clr Drug Dosing 54.05 mL/min Estimated GFR (MDRD) > 60 (>60) mL/min BUN/Creatinine Ratio 15.0 (14-18) Glucose 101 (83-115) mg/dL Lactic Acid (0.4-2.0) mmol/L Calcium 8.2 L (8.5-10.1) mg/dL Magnesium 2.2 (1.8-2.4) mg/dl CK-MB (CK-2) (0-3.6) ng/ml Troponin I 0.085 H* (0.00-0.056) ng/mL C-Reactive Protein 35.3 H* (<1.0) mg/dL Urine Color Yellow (Yellow) Urine Appearance Clear (Clear) Urine pH 7.0 (5.0-8.0) Ur Specific [place] 1.020 (1.005-1.030) Urine Protein 1+ H (Negative) Urine Glucose (UA) Negative (Negative) Urine Ketones 2+ H (Negative) Urine Occult Blood Trace-lysed H (Negative) Urine Nitrite Negative (Negative) Urine Bilirubin 1+ H (Negative) Urine Urobilinogen 4.0 H (0.2-1.0) Ur Leukocyte Esterase Negative (Negative) Urine RBC 0-5 (0-5) /hpf Urine WBC 0-5 (0-5) /hpf Ur Epithelial Cells 0-5 (0-5) /hpf Urine Bacteria Few (FEW) /hpf Urine Mucus Not seen (FEW) /hpf 09/30/18 09/30/18 Range/Units 06:09 10:58 WBC (4.23-9.07) K/mm3 RBC (4.63-6.08) M/mm3 Hgb (13.7-17.5) gm/L Hct (40.1-51.0) % MCV (79.0-92.2) fl MCH (25.7-32.2) pg MCHC (32.2-35.5) g/dl RDW Std Deviation (35.1-43.9) fL Plt Count (163-337) K/mm3 MPV (9.4-12.3) fl Neut % (Auto) (34.0-67.9) % Lymph % (Auto) (21.8-53.1) % [place] % (Auto) (5.3-12.2) % Eos % (Auto) (0.8-7.0) Baso % (Auto) (0.1-1.2) % Neut # (Auto) (1.78-5.38) K/mm3 Lymph # (Auto) (1.32-3.57) K/mm3 [place] # (Auto) (0.30-0.82) K/mm3 Eos # (Auto) (0.04-0.54) K/mm3 Baso # (Auto) (0.01-0.08) K/mm3 Sodium (136-145) mEq/L Potassium (3.5-5.1) mEq/L Chloride (98-107) mEq/L Carbon Dioxide (21-32) mEq/L Anion Gap (5-15) BUN (7-18) mg/dL Creatinine (0.7-1.3) mg/dL Est Cr Clr Drug Dosing mL/min Estimated GFR (MDRD) (>60) mL/min BUN/Creatinine Ratio (14-18) Glucose (83-115) mg/dL Lactic Acid 1.0 (0.4-2.0) mmol/L Calcium (8.5-10.1) mg/dL Magnesium (1.8-2.4) mg/dl CK-MB (CK-2) 2.8 (0-3.6) ng/ml Troponin I 0.069 H* (0.00-0.056) ng/mL C-Reactive Protein (<1.0) mg/dL Urine Color (Yellow) Urine Appearance (Clear) Urine pH (5.0-8.0) Ur Specific [place] (1.005-1.030) Urine Protein (Negative) Urine Glucose (UA) (Negative) Urine Ketones (Negative) Urine Occult Blood (Negative) Urine Nitrite (Negative) Urine Bilirubin (Negative) Urine Urobilinogen (0.2-1.0) Ur Leukocyte Esterase (Negative) Urine RBC (0-5) /hpf Urine WBC (0-5) /hpf Ur Epithelial Cells (0-5) /hpf Urine Bacteria (FEW) /hpf Urine Mucus (FEW) /hpf Tommy Results Last 24 Hours: Microbiology 09/29/18 12:55 Aerobic Blood Culture - Preliminary Blood - Venous NO GROWTH AFTER 1 DAY Anaerobic Blood Culture - Preliminary NO GROWTH AFTER 1 DAY 09/29/18 13:00 Aerobic Blood Culture - Preliminary Blood - Venous - Lab Draw NO GROWTH AFTER 1 DAY Anaerobic Blood Culture - Preliminary NO GROWTH AFTER 1 DAY 09/29/18 12:30 Influenza Type A Antigen Screen - Final Nasal, Unspecified NEGATIVE INFLUENZA A VIRUS AG Influenza Type B Antigen Screen - Final NEGATIVE INFLUENZA B VIRUS AG Med Orders - Current: Current Medications Acetaminophen (Tylenol) 650 mg PO Q6H PRN PRN Reason: Pain/Fever Last Admin: 09/30/18 14:58 Dose: 650 mg Atenolol (Tenormin) 25 mg PO DAILY [facility] Last Admin: 09/30/18 10:19 Dose: 25 mg Enoxaparin Sodium (Lovenox) 40 mg SUBCUT DAILY [facility] Last Admin: 09/30/18 08:24 Dose: 40 mg Fluoxetine HCl (Prozac) 10 mg PO DAILY [facility] Last Admin: 09/30/18 10:18 Dose: 10 mg Hydralazine HCl (Apresoline) 20 mg IVPUSH Q6H PRN PRN Reason: Hypertension Azithromycin 500 mg/ Sodium (Chloride) 250 mls @ 250 mls/hr IV Q24H [facility] Last Admin: 09/29/18 18:48 Dose: 250 mls/hr Ceftriaxone Sodium 2 gm/ (Sodium Chloride) 100 mls @ 200 mls/hr IV Q24H [facility] Last Admin: 09/30/18 13:26 Dose: 200 mls/hr Isosorbide Mononitrate (Imdur) 30 mg PO DAILY [facility] Last Admin: 09/30/18 10:18 Dose: 30 mg Montelukast Sodium (Singulair) 10 mg PO DAILY [facility] Last Admin: 09/30/18 10:20 Dose: 10 mg (Dutasteride 0.5 Mg) (*Pt Own Med*) 0.5 mg PO DAILY [facility] Last Admin: 09/30/18 08:27 Dose: 0.5 mg (Latanoprost/Pf [ Latanoprost 0.005% Eye Drop] 1 Drop)*Pt Own Med* 1 drop EYEBOTH BEDTIME [facility] Last Admin: 09/29/18 20:39 Dose: 1 drop Atorvastatin 20 Mg 0 each PO DAILY [facility] Last Admin: 09/30/18 10:19 Dose: 1 each Fluticasone/Vilanterol Inhaler ( Breo Ellipta 200/25 Mcg) 0 each INH DAILY [facility] Last Admin: 09/30/18 11:22 Dose: Not Given Sodium Chloride (Saline Flush) 10 ml FLUSH ASDIRECTED PRN PRN Reason: Keep Vein Open Last Admin: 09/29/18 13:46 Dose: 10 ml Discontinued Medications Acetaminophen (Tylenol) 650 mg PO NOW STA Stop: 09/29/18 13:43 Last Admin: 09/29/18 13:50 Dose: 650 mg Albuterol (Proventil Neb Soln) 2.5 mg NEB ONETIME ONE Stop: 09/29/18 13:46 Last Admin: 09/29/18 13:52 Dose: 2.5 mg Diphenhydramine HCl (Benadryl) Confirm Administered Dose 50 mg .ROUTE .STK-MED ONE Stop: 09/29/18 21:34 Last Admin: 09/29/18 23:04 Dose: Not Given Enoxaparin Sodium (Lovenox) 30 mg SUBCUT Q24H [facility] Last Admin: 09/29/18 19:21 Dose: Not Given Sodium Chloride (Normal Saline) 1,000 mls @ 100 mls/hr IV ONETIME ONE Stop: 09/29/18 22:48 Last Admin: 09/29/18 13:46 Dose: 100 mls/hr Ceftriaxone Sodium 2 gm/ (Sodium Chloride) 100 mls @ 200 mls/hr IV NOW STA Stop: 09/29/18 13:32 Last Admin: 09/29/18 13:46 Dose: 200 mls/hr Magnesium Sulfate 2 gm/ Premix 50 mls @ 25 mls/hr IV ONETIME ONE Stop: 09/29/18 15:42 Last Admin: 09/29/18 13:52 Dose: 25 mls/hr Magnesium Sulfate 4 gm/ Premix 100 mls @ 25 mls/hr IV ONETIME ONE Stop: 09/29/18 18:39 Last Admin: 09/29/18 19:21 Dose: Not Given Magnesium Sulfate 4 gm/ Premix 100 mls @ 25 mls/hr IV ONETIME ONE Stop: 09/30/18 12:59 - Exam Quality Assessment: Supplemental Oxygen, DVT Prophylaxis General: Alert, Oriented, Cooperative, No Acute Distress HEENT: Pupils Equal, Pupils Reactive, EOMI Neck: Trachea Midline, No JVD Lungs: Normal Respiratory Effort Cardiovascular: Regular Rate GI/Abdominal Exam: Normal Bowel Sounds, Soft, Non-Tender, No Organomegaly (Male) Exam: Deferred Back Exam: Normal Inspection Extremities: Normal Inspection, Non-Tender, Normal Capillary Refill Skin: Warm Neurological: No New Focal Deficit - Problem List & Annotations (1) CAD (coronary artery disease) SNOMED Code(s): 96789844 Code(s): I25.10 - ATHSCL HEART DISEASE OF [place] CORONARY ARTERY W/O ANG PCTRS Status: Acute Current Visit: Yes (2) COPD (chronic obstructive pulmonary disease) SNOMED Code(s): 54512066 Code(s): J44.9 - CHRONIC OBSTRUCTIVE PULMONARY DISEASE, UNSPECIFIED Status : Acute Current Visit: Yes (3) GERD (gastroesophageal reflux disease) SNOMED Code(s): 853055507 Code(s): K21.9 - GASTRO-ESOPHAGEAL REFLUX DISEASE WITHOUT ESOPHAGITIS Status: Acute Current Visit: Yes (4) Hypomagnesemia SNOMED Code(s): 211242912 Code(s): E83.42 - HYPOMAGNESEMIA Status: Acute Current Visit: Yes (5) Hypoxia SNOMED Code(s): 694298088 Code(s): R09.02 - HYPOXEMIA Status: Acute Current Visit: Yes (6) Pneumonia SNOMED Code(s): 720124773 Code(s): J18.9 - PNEUMONIA, UNSPECIFIED ORGANISM Status: Acute Current Visit: Yes - Problem List Review Problem List Initiated/Reviewed/Updated: Yes - My Orders Last 24 Hours: My Active Orders 09/29/18 17:10 STREP PNEUMONIAE ANTIGEN [MREF] Routine 09/29/18 17:51 hydrALAZINE [Apresoline] 20 mg IVPUSH Q6H PRN 09/29/18 18:00 Azithromycin [Zithromax] 500 mg Sodium Chloride 0.9% [Normal Saline] 250 ml IV Q24H 09/29/18 18:40 Acetaminophen [Tylenol] 650 mg PO Q6H PRN 09/29/18 18:50 RESPIRATORY PANEL Routine 09/29/18 21:00 Latanoprost/Pf [Latanoprost 0.005% Eye Drop] 1 drop EYEBOTH BEDTIME 09/30/18 09:00 Consult to Occupational Therapy [OT Evaluation and Treatment] [CONS] Routine Consult to Physical Therapy [PT Evaluation and Treatment] [CONS] Routine Dutasteride 0.5 mg PO DAILY Patient's Own Medication [Ptom] 0 each INH DAILY 09/30/18 10:00 Atenolol [Tenormin] 25 mg PO DAILY FLUoxetine [PROzac] 10 mg PO DAILY Isosorbide Mononitrate [Imdur] 30 mg PO DAILY Patient's Own Medication [Ptom] 0 each PO DAILY 09/30/18 10:15 Montelukast [Singulair] 10 mg PO DAILY 09/30/18 10:56 RT Incentive Spirometry [RC] Q1H09/30/18 11:03 Ambulate [RC] TIDAC 09/30/18 11:04 Incentive Spirometry [RT Incentive Spirometry] [RC] Q209/30/18 14:00 cefTRIAXone [Rocephin] 2 gm Sodium Chloride 0.9% [Normal Saline] 100 ml IV Q24H 10/01/18 05:00 BMP [BASIC METABOLIC PANEL,BMP] [CHEM] DAILY CBC WITH AUTO DIFF [HEME] DAILY CRP [C-REACTIVE PROTEIN] [CHEM] DAILY LACTIC ACID [CHEM] DAILY MAGNESIUM [CHEM] DAILY 10/02/18 05:00 BMP [BASIC METABOLIC PANEL,BMP] [CHEM] DAILY CBC WITH AUTO DIFF [HEME] DAILY CRP [C-REACTIVE PROTEIN] [CHEM] DAILY LACTIC ACID [CHEM] DAILY MAGNESIUM [CHEM] DAILY - Plan Plan:: Impression: Query CAP-nonproductive cough; history of COPD Empiric treatment with Zithromax/Rocephin, acute bronchitis Former tobacco smoker > 20 years ago. Denies sick contacts; s/p Influenza vaccine Chronic HTN HLD GERD Plan: IV ATBs IVF Resp infection work up Home meds Daily Labs Droplet Isolation DVT/GI prophylaxis
[2018-10-01] MEDS: ATENOLOL 25 MG PO SCH (08:38)
[2018-10-01] MEDS: ISOSORBIDE MONONITRATE 30 MG PO SCH (08:38)
[2018-10-01] MEDS: MONTELUKAST 10 MG PO SCH (08:39)
[2018-10-01] MEDS: FLUOXETINE 10 MG PO SCH (08:39)
[2018-10-01] MEDS: Enoxaparin 40 MG/0.4 ML Syringe SUBCUT SCH (08:40)
[2018-10-01] MEDS: DUTASTERIDE 0.5 MG PO SCH (08:41)
[2018-10-01] MEDS ORDERED: cefTRIAXone 2 GM in Sodium Chloride 0.9% 100 ML IV ONE (11:15)
--- NOTE | 2018-10-01 11:33 | PCM.DCSUM1 ---
Discharge Summary - Hospital Course Free Text/Narrative:: 77 year old male with PMH of COPD, presented in mild respiratory distress. He was placed on droplet isolation, PNA was excluded. Continued to improve with IV ATBs for acute bronchitis. He is expected to follow up with his pulmonary and cardiology provider as well as PCP as an outpatient. The patient was provided education on PNA on DC. Parainfluenza was positive on the resp panel. He has already received the Influenza vaccine this season. Primary Dx Acute bronchitis Acute mild resp distress COPD Dehydration Abnormal electrolytes (Na, K, Mg) Elevated troponin Meds Zithromax 500 mg daily Florastor 500 mg daily Resume home meds as written Follow up-->as scheduled Pulmonary Cardiology PCP HPI Initial Comments: 77 year old male with possible sick contact, presents with SOB, non productive cough. He admits to chills but denies fever. He has experienced generalized weakness, and shortness of breath. The patient has had the flu vaccine this season. He is a full code and will be admitted to observation. Diagnosis: Stroke: No - Discharge Data Discharge Date: 10/01/18 Discharge Disposition: Home, Self-Care 01 Condition: Good - Discharge Diagnosis/Problem(s) (1) CAD (coronary artery disease) SNOMED Code(s): 03835376 ICD Code: I25.10 - ATHSCL HEART DISEASE OF [place] CORONARY ARTERY W/O ANG PCTRS Status: Acute Current Visit: Yes (2) COPD (chronic obstructive pulmonary disease) SNOMED Code(s): 09457892 ICD Code: J44.9 - CHRONIC OBSTRUCTIVE PULMONARY DISEASE, UNSPECIFIED Status : Acute Current Visit: Yes (3) GERD (gastroesophageal reflux disease) SNOMED Code(s): 295410863 ICD Code: K21.9 - GASTRO-ESOPHAGEAL REFLUX DISEASE WITHOUT ESOPHAGITIS Status: Acute Current Visit: Yes (4) Hypomagnesemia SNOMED Code(s): 938799360 ICD Code: E83.42 - HYPOMAGNESEMIA Status: Acute Current Visit: Yes (5) Hypoxia SNOMED Code(s): 488403467 ICD Code: R09.02 - HYPOXEMIA Status: Acute Current Visit: Yes (6) Pneumonia SNOMED Code(s): 605667633 ICD Code: J18.9 - PNEUMONIA, UNSPECIFIED ORGANISM Status: Acute Current Visit: Yes - Patient Summary/Data Consults: Consultations 09/30/18 09:00 Consult to Occupational Therapy [OT Evaluation and Treatment] [CONS] Routine Consult to Physical Therapy [PT Evaluation and Treatment] [CONS] Routine - Patient Instructions Diet: Usual Diet as Tolerated Activity: As Tolerated Driving: Do Not Drive Showering/Bathing: May Shower Notify Provider of: Fever, Increased Pain, Nausea and/or Vomiting - Discharge Plan *PRESCRIPTION DRUG MONITORING PROGRAM REVIEWED*: No *COPY OF PRESCRIPTION DRUG MONITORING REPORT IN PATIENT NOEMY: No Prescriptions/Med Rec: Azithromycin [Zithromax] 500 mg PO DAILY #5 tablet Saccharomyces Boulardii [Florastor] 500 mg PO DAILY #10 cap Home Medications: Home Meds Atenolol [Tenormin] 25 mg PO DAILY 07/26/15 [History] Dutasteride [Avodart] 0.5 mg PO DAILY 07/26/15 [History] Lisinopril [Prinivil] 2.5 mg PO DAILY 07/26/15 [History] Montelukast [Singulair] 10 mg PO DAILY 07/26/15 [History] atorvaSTATin [Lipitor] 20 mg PO DAILY 07/26/15 [History] FLUoxetine [PROzac] 10 mg PO DAILY 04/12/18 [History] Isosorbide Mononitrate [Imdur] 30 mg PO DAILY 04/12/18 [History] Omeprazole 20 mg PO BIDAC 04/12/18 [History] Fluticasone/Vilanterol [Breo Ellipta 200-25 Mcg INH] 1 puff INH DAILY 07/01/18 [ History] Latanoprost/Pf [Latanoprost 0.005% Eye Drop] 1 drop EYEBOTH BEDTIME 07/01/18 [ History] cycloSPORINE [Restasis] 1 drop EYEBOTH BID 09/29/18 [History] Azithromycin [Zithromax] 500 mg PO DAILY #5 tablet 10/01/18 [Rx] Saccharomyces Boulardii [Florastor] 500 mg PO DAILY #10 cap 10/01/18 [Rx] Patient Handouts: Chronic Obstructive Pulmonary Disease Exacerbation, Community -Acquired Pneumonia, Adult, [id number] Referrals: Kath Stone MD [Primary Care Provider] - - Discharge Summary/Plan Comment DC Time >30 min.: No Discharge Summary/Plan Comment: Impression: History of COPD, improved oxygenation; acute bronchitis Former tobacco smoker > 20 years ago. Denies sick contacts; s/p Influenza vaccine Chronic HTN HLD GERD Plan: IV ATBs; change to Zithromax 500 mg daily for 5 days at [place] Received a total Rocephin, 3 doses during hospitalization Does not require oxygen with activities documented by resp therapy Home meds Daily Labs Droplet Isolation DVT/GI prophylaxis - General Info Date of Service: 09/29/18 Functional Status: Reports: Pain Controlled, Tolerating Diet, Ambulating, Urinating - Review of Systems General: Reports: No Symptoms HEENT: Reports: No Symptoms Pulmonary: Reports: No Symptoms Cardiovascular: Reports: No Symptoms Gastrointestinal: Reports: No Symptoms Genitourinary: Reports: No Symptoms Musculoskeletal: Reports: No Symptoms Skin: Reports: No Symptoms Neurological: Reports: No Symptoms Psychiatric: Reports: No Symptoms - Patient Data Vitals - Most Recent: Last Vital Signs Temp 36.3 C 10/01/18 08:35 Pulse 72 10/01/18 08:38 Resp 16 10/01/18 08:35 BP 127/81 10/01/18 08:38 Pulse Ox 92 L 10/01/18 11:25 Weight - Most Recent: 82.236 kg I&O - Last 24 hours: Intake & Output 09/30/18 10/01/18 10/01/18 22:59 06:59 14:59 Intake Total 820 400 560 Output Total 400 1250 Balance 420 -850 560 Lab Results - Last 24 hrs: Laboratory Results - last 24 hr 09/29/18 09/30/18 10/01/18 Range/Units 18:50 10:58 06:00 WBC 5.25 (4.23-9.07) K/mm3 RBC 4.27 L (4.63-6.08) M/mm3 Hgb 12.5 L (13.7-17.5) gm/L Hct 37.4 L (40.1-51.0) % MCV 87.6 (79.0-92.2) fl MCH 29.3 (25.7-32.2) pg MCHC 33.4 (32.2-35.5) g/dl RDW Std Deviation 42.0 (35.1-43.9) fL Plt Count 159 L (163-337) K/mm3 MPV 10.1 (9.4-12.3) fl Neut % (Auto) 61.5 (34.0-67.9) % Lymph % (Auto) 23.6 (21.8-53.1) % [place] % (Auto) 13.3 H (5.3-12.2) % Eos % (Auto) 1.0 (0.8-7.0) Baso % (Auto) 0.4 (0.1-1.2) % Neut # (Auto) 3.23 (1.78-5.38) K/mm3 Lymph # (Auto) 1.24 L (1.32-3.57) K/mm3 [place] # (Auto) 0.70 (0.30-0.82) K/mm3 Eos # (Auto) 0.05 (0.04-0.54) K/mm3 Baso # (Auto) 0.02 (0.01-0.08) K/mm3 Manual Slide Review Normal smear Sodium (136-145) mEq/L Potassium (3.5-5.1) mEq/L Chloride (98-107) mEq/L Carbon Dioxide (21-32) mEq/L Anion Gap (5-15) BUN (7-18) mg/dL Creatinine (0.7-1.3) mg/dL Est Cr Clr Drug Dosing mL/min Estimated GFR (MDRD) (>60) mL/min BUN/Creatinine Ratio (14-18) Glucose (83-115) mg/dL Lactic Acid (0.4-2.0) mmol/L Calcium (8.5-10.1) mg/dL Magnesium (1.8-2.4) mg/dl CK-MB (CK-2) 2.8 (0-3.6) ng/ml Troponin I 0.069 H* (0.00-0.056) ng/mL C-Reactive Protein (<1.0) mg/dL Adenovirus (PCR) Not detected (Not Detected) B. pertussis DNA (PCR) Not detected (Not Detected) B.parapertussis DNA PCR Not detected (Not Detected) C. pneumoniae DNA (PCR) Not detected (Not Detected) Coronavirus (PCR) Not detected (Not Detected) Human Metapneumovir PCR Not detected (Not Detected) Influenza A (RT-PCR) Not detected (Not Detected) Influenza B (RT-PCR) Not detected (Not Detected) M. pneumoniae (PCR) Not detected (Not Detected) Parainfluen 1,2,3,4 PCR Detected H (Not Detected) RSV (PCR) Not detected (Not Detected) Entero/Rhino (PCR) Not detected (Not Detected) 10/01/18 10/01/18 Range/Units 06:00 06:00 WBC (4.23-9.07) K/mm3 RBC (4.63-6.08) M/mm3 Hgb (13.7-17.5) gm/L Hct (40.1-51.0) % MCV (79.0-92.2) fl MCH (25.7-32.2) pg MCHC (32.2-35.5) g/dl RDW Std Deviation (35.1-43.9) fL Plt Count (163-337) K/mm3 MPV (9.4-12.3) fl Neut % (Auto) (34.0-67.9) % Lymph % (Auto) (21.8-53.1) % [place] % (Auto) (5.3-12.2) % Eos % (Auto) (0.8-7.0) Baso % (Auto) (0.1-1.2) % Neut # (Auto) (1.78-5.38) K/mm3 Lymph # (Auto) (1.32-3.57) K/mm3 [place] # (Auto) (0.30-0.82) K/mm3 Eos # (Auto) (0.04-0.54) K/mm3 Baso # (Auto) (0.01-0.08) K/mm3 Manual Slide Review Sodium 138 (136-145) mEq/L Potassium 3.6 (3.5-5.1) mEq/L Chloride 104 (98-107) mEq/L Carbon Dioxide 23 (21-32) mEq/L Anion Gap 14.6 (5-15) BUN 16 (7-18) mg/dL Creatinine 0.9 (0.7-1.3) mg/dL Est Cr Clr Drug Dosing 60.06 mL/min Estimated GFR (MDRD) > 60 (>60) mL/min BUN/Creatinine Ratio 17.8 (14-18) Glucose 84 (83-115) mg/dL Lactic Acid 0.7 (0.4-2.0) mmol/L Calcium 8.0 L (8.5-10.1) mg/dL Magnesium 2.1 (1.8-2.4) mg/dl CK-MB (CK-2) (0-3.6) ng/ml Troponin I (0.00-0.056) ng/mL C-Reactive Protein 13.9 H* (<1.0) mg/dL Adenovirus (PCR) (Not Detected) B. pertussis DNA (PCR) (Not Detected) B.parapertussis DNA PCR (Not Detected) C. pneumoniae DNA (PCR) (Not Detected) Coronavirus (PCR) (Not Detected) Human Metapneumovir PCR (Not Detected) Influenza A (RT-PCR) (Not Detected) Influenza B (RT-PCR) (Not Detected) M. pneumoniae (PCR) (Not Detected) Parainfluen 1,2,3,4 PCR (Not Detected) RSV (PCR) (Not Detected) Entero/Rhino (PCR) (Not Detected) KEVIN Results - Last 24 hrs: Microbiology 09/29/18 17:10 Urine Culture - Final Urine, Voided NO GROWTH AFTER 2 DAYS 09/29/18 12:55 Aerobic Blood Culture - Preliminary Blood - Venous NO GROWTH AFTER 1 DAY Anaerobic Blood Culture - Preliminary NO GROWTH AFTER 1 DAY 09/29/18 13:00 Aerobic Blood Culture - Preliminary Blood - Venous - Lab Draw NO GROWTH AFTER 1 DAY Anaerobic Blood Culture - Preliminary NO GROWTH AFTER 1 DAY Med Orders - Current: Current Medications Acetaminophen (Tylenol) 650 mg PO Q6H PRN PRN Reason: Pain/Fever Last Admin: 09/30/18 14:58 Dose: 650 mg Atenolol (Tenormin) 25 mg PO DAILY [facility] Last Admin: 10/01/18 08:38 Dose: 25 mg Enoxaparin Sodium (Lovenox) 40 mg SUBCUT DAILY [facility] Last Admin: 10/01/18 08:40 Dose: 40 mg Fluoxetine HCl (Prozac) 10 mg PO DAILY [facility] Last Admin: 10/01/18 08:39 Dose: 10 mg Hydralazine HCl (Apresoline) 20 mg IVPUSH Q6H PRN PRN Reason: Hypertension Azithromycin 500 mg/ Sodium (Chloride) 250 mls @ 250 mls/hr IV Q24H [facility] Last Admin: 09/30/18 17:05 Dose: 250 mls/hr Ceftriaxone Sodium 2 gm/ (Sodium Chloride) 100 mls @ 200 mls/hr IV ONETIME ONE Stop: 10/01/18 11:44 Isosorbide Mononitrate (Imdur) 30 mg PO DAILY [facility] Last Admin: 10/01/18 08:38 Dose: 30 mg Montelukast Sodium (Singulair) 10 mg PO DAILY [facility] Last Admin: 10/01/18 08:39 Dose: 10 mg (Dutasteride 0.5 Mg) (*Pt Own Med*) 0.5 mg PO DAILY [facility] Last Admin: 10/01/18 08:41 Dose: 0.5 mg (Latanoprost/Pf [ Latanoprost 0.005% Eye Drop] 1 Drop)*Pt Own Med* 1 drop EYEBOTH BEDTIME [facility] Last Admin: 09/30/18 21:17 Dose: 1 drop Atorvastatin 20 Mg 0 each PO DAILY [facility] Last Admin: 10/01/18 08:39 Dose: 1 each Fluticasone/Vilanterol Inhaler ( Breo Ellipta 200/25 Mcg) 0 each INH DAILY [facility] Last Admin: 09/30/18 11:22 Dose: Not Given Sodium Chloride (Saline Flush) 10 ml FLUSH ASDIRECTED PRN PRN Reason: Keep Vein Open Last Admin: 09/29/18 13:46 Dose: 10 ml Discontinued Medications Acetaminophen (Tylenol) 650 mg PO NOW STA Stop: 09/29/18 13:43 Last Admin: 09/29/18 13:50 Dose: 650 mg Albuterol (Proventil Neb Soln) 2.5 mg NEB ONETIME ONE Stop: 09/29/18 13:46 Last Admin: 09/29/18 13:52 Dose: 2.5 mg Diphenhydramine HCl (Benadryl) Confirm Administered Dose 50 mg .ROUTE .STK-MED ONE Stop: 09/29/18 21:34 Last Admin: 09/29/18 23:04 Dose: Not Given Enoxaparin Sodium (Lovenox) 30 mg SUBCUT Q24H [facility] Last Admin: 09/29/18 19:21 Dose: Not Given Sodium Chloride (Normal Saline) 1,000 mls @ 100 mls/hr IV ONETIME ONE Stop: 09/29/18 22:48 Last Admin: 09/29/18 13:46 Dose: 100 mls/hr Ceftriaxone Sodium 2 gm/ (Sodium Chloride) 100 mls @ 200 mls/hr IV NOW STA Stop: 09/29/18 13:32 Last Admin: 09/29/18 13:46 Dose: 200 mls/hr Magnesium Sulfate 2 gm/ Premix 50 mls @ 25 mls/hr IV ONETIME ONE Stop: 09/29/18 15:42 Last Admin: 09/29/18 13:52 Dose: 25 mls/hr Ceftriaxone Sodium 2 gm/ (Sodium Chloride) 100 mls @ 200 mls/hr IV Q24H [facility] Last Admin: 09/30/18 13:26 Dose: 200 mls/hr Magnesium Sulfate 4 gm/ Premix 100 mls @ 25 mls/hr IV ONETIME ONE Stop: 09/29/18 18:39 Last Admin: 09/29/18 19:21 Dose: Not Given Magnesium Sulfate 4 gm/ Premix 100 mls @ 25 mls/hr IV ONETIME ONE Stop: 09/30/18 12:59 - Exam Quality Assessment: Reports: DVT Prophylaxis General: Reports: Alert, Oriented, Cooperative, No Acute Distress HEENT: Reports: Pupils Equal, Pupils Reactive, EOMI Neck: Reports: Supple, Trachea Midline, No JVD Lungs: Reports: Normal Respiratory Effort, Rhonchi Cardiovascular: Reports: Regular Rate GI/Abdominal Exam: Normal Bowel Sounds, Soft, Non-Tender, No Organomegaly, No Distention (Male) Exam: Deferred Rectal (Males) Exam: Deferred Back Exam: Reports: Normal Inspection Extremities: Normal Inspection, Non-Tender, Normal Capillary Refill Skin: Reports: Warm Neurological: Reports: No New Focal Deficit Psy/Mental Status: Reports: Alert, Normal Affect, Normal Mood
[2018-10-01] MEDS: VILANTEROL INH SCH (12:42)
[2018-10-01] MEDS: FLUTICASONE INH SCH (12:42)
[2018-10-01 12:43] VITALS: BP 108/62
[2018-10-01] MEDS ORDERED: Azithromycin 250 MG Tab PO SCH (13:00)
[2018-10-01] MEDS ORDERED: Saccharomyces Boulardii (Probiotic) 250 MG Cap PO SCH (13:00)
[2018-10-01] MEDS ORDERED: Cyclosporine 1 DROP EYEBOTH SCH (21:00)
== END 2018-10-01 16:24 | disposition home or self-care (01) ==
LOC: JD.ED 12:14 → JD.MS 14:33 → UNDOADMOB 14:39 → JD.MS 15:15
PROVIDERS: ADMIT Internal Medicine; ATTEND Internal Medicine
DX: J44.0 Chronic obstructive pulmonary disease with (acute) lower respiratory infection (principal); J18.9 Pneumonia, unspecified organism; J20.9 Acute bronchitis, unspecified; B34.8 Other viral infections of unspecified site; I25.10 Atherosclerotic heart disease of native coronary artery without angina pectoris; I10 Essential (primary) hypertension; K21.9 Gastro-esophageal reflux disease without esophagitis; E78.00 Pure hypercholesterolemia, unspecified; F32.9 Major depressive disorder, single episode, unspecified; E83.42 Hypomagnesemia; Z87.891 Personal history of nicotine dependence; Z79.899 Other long term (current) drug therapy; Z88.5 Allergy status to narcotic agent
CPT/HCPCS: 36415; 71045; 71046; 80048; 80053; 81001; 82553; 83605; 83735; 83880; 84484; 85007; 85025; 85027; 86140; 86738; 87040; 87086; 87486; 87581; 87632; 87798; 87804; 87899; 93005; 94640; 94667; 94668; 94760; 96365; 96375; 97161; 97165; 99285; A9270; J0456; J0696; J1650; J7030; J7040; J7050; 93010; 99284; J3475

== ENCOUNTER 2020-07-13 16:36 | Emergency (ER) | payer MEDICARE, MEDICAID ==
--- NOTE | 2020-07-13 17:30 | EDM.PDOC ---
ED HPI GENERAL MEDICAL PROBLEM - General Chief Complaint: ENT Problem Stated Complaint: NOSE BLEED Time Seen by Provider: 07/13/20 17:01 Source of Information: Reports: Patient History Limitations: Reports: No Limitations - History of Present Illness INITIAL COMMENTS - FREE TEXT/NARRATIVE: The patient presents with a nose bleed. This started earlier today. He did get it to stop a couple times but it keeps starting. He has a history of nose bleeds. He is not on any blood thinners. He has no trauma to his nose. His blood pressure is not high. Onset: Sudden Duration: Day(s): Severity: Moderate Improves with: Reports: None Worsens with: Reports: None Associated Symptoms: Reports: No Other Symptoms - Related Data Allergies Allergy/AdvReac Type Severity Reaction Status Date / Time codeine Allergy Severe Cannot Verified 07/13/20 17:00 Remember Home Meds: Home Meds Dutasteride [Avodart] 0.5 mg PO DAILY 07/26/15 [History] Montelukast [Singulair] 10 mg PO DAILY 07/26/15 [History] atenoloL [Tenormin] 25 mg PO DAILY 07/26/15 [History] atorvaSTATin [Lipitor] 20 mg PO DAILY 07/26/15 [History] lisinopriL [Prinivil] 2.5 mg PO DAILY 07/26/15 [History] FLUoxetine [PROzac] 10 mg PO DAILY 04/12/18 [History] Isosorbide Mononitrate [Imdur] 30 mg PO DAILY 04/12/18 [History] Omeprazole 20 mg PO BIDAC 04/12/18 [History] Fluticasone/Vilanterol [Breo Ellipta 200-25 MCG Inhalation Kit] 1 puff INH DAILY 07/01/18 [History] Latanoprost/Pf [Latanoprost 0.005% Eye Drop] 1 drop EYEBOTH BEDTIME 07/01/18 [History] cycloSPORINE [Restasis] 1 drop EYEBOTH BID 09/29/18 [History] Azithromycin [Zithromax] 500 mg PO DAILY #5 tablet 10/01/18 [Rx] Saccharomyces Boulardii [Florastor] 500 mg PO DAILY #10 cap 10/01/18 [Rx] Past Medical History HEENT History: Reports: Epistaxis, Glaucoma, Hard of Hearing, Impaired Vision Cardiovascular History: Reports: Angina, High Cholesterol, Hypertension Respiratory History: Reports: COPD, SOB Gastrointestinal History: Reports: GERD Genitourinary History: Reports: Prostate Disorder Musculoskeletal History: Reports: Arthritis Psychiatric History: Reports: Depression Endocrine/Metabolic History: Reports: None Hematologic History: Reports: Blood Transfusion(s) Oncologic (Cancer) History: Reports: Other (See Below) Other Oncologic History: occular cancer, fixed with radiation therapy Dermatologic History: Reports: None - Infectious Disease History Infectious Disease History: Reports: Influenza, Measles, Mumps, Pertussis (Whooping Cough) - Past Surgical History Cardiovascular Surgical History: Reports: Other (See Below) Other Cardiovascular Surgeries/Procedures: angiogram attempt but decided to not go ahead with stent placement d/t potential damage Respiratory Surgical History: Reports: None GI Surgical History: Reports: None Male Surgical History: Reports: None Musculoskeletal Surgical History: Reports: Hip Replacement Other Musculoskeletal Surgeries/Procedures:: bilateral Social & Family History - Family History Family Medical History: Noncontributory - Tobacco Use Tobacco Use Status *Q: Former Tobacco User Used Tobacco, but Quit: Yes Month/Year Tobacco Last Used: 25 yrs - Caffeine Use Caffeine Use: Reports: Soda - Recreational Drug Use Recreational Drug Use: No - Living Situation & Occupation Living situation: Reports: Single Occupation: Retired ED ROS ENT - Review of Systems Review Of Systems: See Below Constitutional: Reports: No Symptoms HEENT: Reports: Nosebleed Respiratory: Reports: No Symptoms Cardiovascular: Reports: No Symptoms Endocrine: Reports: No Symptoms GI/Abdominal: Reports: No Symptoms : Reports: No Symptoms Musculoskeletal: Reports: No Symptoms ED EXAM, ENT - Physical Exam Exam: See Below Exam Limited By: No Limitations General Appearance: Alert, No Apparent Distress Ears: Normal External Exam Nose: Active Bleeding (mild to the left nostril) ED ENT PROCEDURES - Epistaxis Procedure Indication: Epistaxis Recent anticoagulants/antiplatlets: No Uncontrolled HTN: No Recent septal/nasal surgery: No Site of bleeding: Left Nare Clearing of clots: Patient Blew Nose Ice pack to area: No Chemical cautery: Silver Nitrate Topical Complications: No Course - Vital Signs Last Recorded V/S: Last Vital Signs Temp 97.4 F 07/13/20 17:09 Pulse 75 07/13/20 17:09 Resp 20 07/13/20 17:09 BP 123/58 L 07/13/20 17:09 Pulse Ox 95 07/13/20 17:09 - Re-Assessments/Exams Free Text/Narrative Re-Assessment/Exam: 07/13/20 17:30 I cauterized a bleeder in the left septum. 07/13/20 17:33 He has no more bleeding. I will discharge him home. Departure - Departure Time of Disposition: 17:35 Disposition: Home, Self-Care 01 Condition: Good Clinical Impression: Epistaxis - Discharge Information *PRESCRIPTION DRUG MONITORING PROGRAM REVIEWED*: Not Applicable *COPY OF PRESCRIPTION DRUG MONITORING REPORT IN PATIENT NOEMY: Not Applicable Referrals: Kath Stone MD [Primary Care Provider] - 1 Week Forms: ED Department Discharge Additional Instructions: Use direct pressure to stop the nose bleeds. You may also try some nasal cease. It is a product white drug carries. Put petroleum ointment or antibiotic ointment in each nostril to keep your nose moist. Please return if you are worse. Sepsis Event Note (ED) - Evaluation Sepsis Screening Result: No Definite Risk - Focused Exam Vital Signs: Vital Signs Temp Pulse Resp BP Pulse Ox 07/13/20 17:09 97.4 F 75 20 123/58 L 95
[2020-07-13 17:46] VITALS: BP 129/68; PULSE 73
== END 2020-07-13 17:47 | disposition home or self-care (01) ==
LOC: JD.ED 16:36
DX: R04.0 Epistaxis (principal); E78.00 Pure hypercholesterolemia, unspecified; I10 Essential (primary) hypertension; J44.9 Chronic obstructive pulmonary disease, unspecified; F32.9 Major depressive disorder, single episode, unspecified; M19.90 Unspecified osteoarthritis, unspecified site; N42.9 Disorder of prostate, unspecified; Z87.891 Personal history of nicotine dependence; Z88.5 Allergy status to narcotic agent; Z79.899 Other long term (current) drug therapy
CPT/HCPCS: 30901; 99282; 99283-25

== ENCOUNTER 2024-10-03 10:33 | Emergency (ER) | payer MEDICARE, MEDICAID ==
[2024-10-03] MEDS ORDERED: Sodium Chloride 0.9% 10 ML Syringe FLUSH PRN (11:16)
[2024-10-03 11:39] LABS: BASOPHILS PERCENT AUTO 0.3 % (0.0-1.0); EOSINOPHILS PERCENT AUTO 0.4 % (0.0-6.0); HEMOGLOBIN 11.4 gm/dl (14.0-18.0); IMMATURE GRAN ABSOLUTE AUTO 0.02 K/mm3 (0.00-0.05); IMMATURE GRAN PERCENT AUTO 0.2 % (0.0-0.4); LYMPHOCYTES PERCENT AUTO 10.9 % (24.0-44.0); MEAN CORPUSCULAR HEMOGLOBIN 29.6 pg (28.0-32.0); MEAN CORPUSCULAR HGB CONC 34.5 g/dl (32.0-36.0); MEAN CORPUSCULAR VOLUME 85.7 fl (83.0-99.0); MEAN PLATELET VOLUME 10.2 fl (9.4-12.4); MONOCYTES ABSOLUTE AUTO 0.7 K/mm3 (0.0-0.8); MONOCYTES PERCENT AUTO 7.2 % (0.0-8.0); NEUTROPHILS ABSOLUTE AUTO 7.7 K/mm3 (1.8-7.7); PLATELET COUNT,PLT 240 K/mm3 (150-400); RED BLOOD CELL COUNT 3.85 M/mm3 (4.52-5.90); WHITE BLOOD CELL COUNT,WBC 9.45 K/mm3 (3.9-11.3)
[2024-10-03 11:53] LABS: LACTIC ACID 1.5 mmol/L (0.4-2.0)
[2024-10-03 11:59] LABS: A/G RATIO 0.9 (1-2); ALBUMIN 3.1 g/dl (3.4-5.0); ANION GAP 12.4 (5-15); BILIRUBIN TOTAL 0.9 mg/dL (0.2-1.0); BUN/CREATININE RATIO 11.6 (14-18); C-REACTIVE PROTEIN 5.02 mg/dL (<0.30); CREATININE 1.9 mg/dL (0.7-1.3); EST CRCL DRUG DOSING (CG) 25.65 mL/min; POTASSIUM,K 3.4 mEq/L (3.5-5.1); PROTEIN TOTAL,TP 6.6 g/dl (6.4-8.2)
[2024-10-03 12:06] LABS: CALCIUM 12.2 mg/dL (8.5-10.1)
[2024-10-03] MEDS: Glucagon,Human Recombinant 1 MG Vial IVPUSH ONE (12:08)
[2024-10-03] MEDS: Sodium Chloride 0.9% 1,000 ML IV SCH (12:09)
[2024-10-03 13:46] LABS: APPEARANCE,URINE CLEAR (Clear); BILIRUBIN,URINE NEGATIVE (Negative); COLOR,URINE YELLOW (Yellow); GLUCOSE,URINE NEGATIVE (Negative); KETONES,URINE NEGATIVE (Negative); LEUKOCYTE ESTERASE,URINE NEGATIVE (Negative); NITRITE,URINE NEGATIVE (Negative); OCCULT BLOOD,URINE NEGATIVE (Negative); PROTEIN,URINE TRACE (Negative); UROBILINOGEN,URINE 0.2 (0.2-1.0)
[2024-10-03 14:04] LABS: BACTERIA,URINE NOT SEEN /hpf (FEW); EPITHELIAL CELLS,URINE 0-5 /hpf (0-5); MUCUS,URINE NOT SEEN /hpf (FEW); RBC,URINE 0-5 /hpf (0-5); WBC,URINE 0-5 /hpf (0-5)
[2024-10-03] MEDS: Magnesium Citrate Solution 296 ML Bottle PO ONE (16:02)
[2024-10-03 20:57] VITALS: BP 155/71; PULSE 68
== END 2024-10-03 16:29 | disposition home or self-care (01) ==
LOC: JD.ED 10:33
DX: K59.00 Constipation, unspecified (principal); I10 Essential (primary) hypertension; I20.9 Angina pectoris, unspecified; E78.00 Pure hypercholesterolemia, unspecified; J44.9 Chronic obstructive pulmonary disease, unspecified; K21.9 Gastro-esophageal reflux disease without esophagitis; Z96.643 Presence of artificial hip joint, bilateral; Z88.5 Allergy status to narcotic agent; Z79.899 Other long term (current) drug therapy
CPT/HCPCS: 36415; 71045; 74018; 80053; 81001; 83605; 83690; 83880; 84484; 85025; 86140; 93005; 96361; 96374; 99284; A9270; J1610; J7030

== ENCOUNTER 2024-10-05 18:49 | Inpatient (IN) | payer MEDICARE, MEDICAID ==
[2024-10-05] MEDS: Ondansetron 4 MG/2 ML SDV IVPUSH ONE (19:25)
[2024-10-05] MEDS: Sodium Chloride 0.9% 250 ML IV ONE (19:25)
[2024-10-05 19:30] LABS: BASOPHILS PERCENT AUTO 0.3 % (0.0-1.0); EOSINOPHILS PERCENT AUTO 0.1 % (0.0-6.0); HEMATOCRIT 31.5 % (42.0-52.0); HEMOGLOBIN 10.6 gm/dl (14.0-18.0); IMMATURE GRAN ABSOLUTE AUTO 0.03 K/mm3 (0.00-0.05); IMMATURE GRAN PERCENT AUTO 0.3 % (0.0-0.4); LYMPHOCYTES ABSOLUTE AUTO 1.2 K/mm3 (1.0-4.8); MEAN CORPUSCULAR HEMOGLOBIN 29.2 pg (28.0-32.0); MEAN CORPUSCULAR HGB CONC 33.7 g/dl (32.0-36.0); MEAN CORPUSCULAR VOLUME 86.8 fl (83.0-99.0); MEAN PLATELET VOLUME 10.1 fl (9.4-12.4); MONOCYTES ABSOLUTE AUTO 0.9 K/mm3 (0.0-0.8); NEUTROPHILS ABSOLUTE AUTO 7.8 K/mm3 (1.8-7.7); NEUTROPHILS PERCENT AUTO 78.3 % (41.0-71.0); PLATELET COUNT,PLT 223 K/mm3 (150-400); RED BLOOD CELL COUNT 3.63 M/mm3 (4.52-5.90); WHITE BLOOD CELL COUNT,WBC 9.96 K/mm3 (3.9-11.3)
[2024-10-05] MEDS ORDERED: Ondansetron 4 MG/2 ML SDV IVPUSH ONE (19:54)
[2024-10-05 20:06] LABS: ALBUMIN 3.2 g/dl (3.4-5.0); ANION GAP 14.2 (5-15); BILIRUBIN TOTAL 1.1 mg/dL (0.2-1.0); BUN/CREATININE RATIO 13.5 (14-18); CALCIUM 12.5 mg/dL (8.5-10.1); EST CRCL DRUG DOSING (CG) 24.37 mL/min; MAGNESIUM 2.2 mg/dL (1.8-2.4); POTASSIUM,K 3.2 mEq/L (3.5-5.1); PROTEIN TOTAL,TP 6.3 g/dl (6.4-8.2)
[2024-10-05] MEDS: Sodium Chloride 0.9% 500 ML IV ONE (20:43)
[2024-10-05] MEDS: Iopamidol 612 MG/ML 100 ML Bottle IVPUSH ONE (21:02)
[2024-10-05] MEDS: Potassium Chloride 10 MEQ in Premix Bag 1 BAG IV SCH (22:01)
[2024-10-05] MEDS ORDERED: Naloxone 0.4 MG/ML SDV IVPUSH PRN (23:16)
[2024-10-05] MEDS: Morphine 4 MG/ML Syringe IVPUSH ONE (23:28)
[2024-10-06 00:22] LABS: APPEARANCE,URINE CLEAR (Clear); BILIRUBIN,URINE NEGATIVE (Negative); COLOR,URINE YELLOW (Yellow); EPITHELIAL CELLS,URINE 0-5 /hpf (0-5); GLUCOSE,URINE NEGATIVE (Negative); KETONES,URINE NEGATIVE (Negative); LEUKOCYTE ESTERASE,URINE NEGATIVE (Negative); NITRITE,URINE NEGATIVE (Negative); OCCULT BLOOD,URINE TRACE-LYSED (Negative); PH,URINE 6.5 (5.0-8.0); PROTEIN,URINE TRACE (Negative); RBC,URINE 0-5 /hpf (0-5); UROBILINOGEN,URINE 0.2 (0.2-1.0)
[2024-10-06 00:23] LABS: AMORPHOUS SEDIMENT,URINE FEW /hpf (NOT SEEN); BACTERIA,URINE RARE /hpf (FEW); HYALINE CASTS,URINE 0-5 /lpf (0-5); MUCUS,URINE RARE /hpf (FEW)
[2024-10-06 05:19] LABS: ANION GAP 10.3 (5-15); BUN/CREATININE RATIO 14.1 (14-18); CALCIUM 10.8 mg/dL (8.5-10.1); CREATININE 1.7 mg/dL (0.7-1.3); EST CRCL DRUG DOSING (CG) 28.67 mL/min; POTASSIUM,K 3.3 mEq/L (3.5-5.1)
[2024-10-07] MEDS ORDERED: Acetaminophen 325 MG Tab PO PRN (07:58)
[2024-10-07] MEDS: Potassium Chloride 20 MEQ Tab.ER PO ONE (08:48)
[2024-10-07] MEDS: Sertraline 25 MG Tab PO SCH (08:48)
[2024-10-07] MEDS: Atenolol 25 MG Tab PO SCH (08:48)
[2024-10-07] MEDS: Enoxaparin 30 MG/0.3 ML Syringe SUBCUT SCH (08:52)
[2024-10-07] MEDS: Finasteride 5 MG Tab PO SCH (08:52)
[2024-10-07] MEDS: Pantoprazole 40 MG Tab.CR PO SCH (13:41)
[2024-10-07] MEDS ORDERED: Albuterol/Ipratropium 3.0-0.5 MG/3 ML Neb Soln NEB PRN (18:59)
[2024-10-07] MEDS: Sodium Chloride 0.9% 1,000 ML IV SCH (22:08)
[2024-10-08 05:32] LABS: BASOPHILS PERCENT AUTO 0.3 % (0.0-1.0); EOSINOPHILS ABSOLUTE AUTO 0.2 K/mm3 (0.0-0.4); EOSINOPHILS PERCENT AUTO 1.7 % (0.0-6.0); HEMATOCRIT 29.7 % (42.0-52.0); IMMATURE GRAN ABSOLUTE AUTO 0.03 K/mm3 (0.00-0.05); IMMATURE GRAN PERCENT AUTO 0.3 % (0.0-0.4); LYMPHOCYTES PERCENT AUTO 11.5 % (24.0-44.0); MEAN CORPUSCULAR HEMOGLOBIN 29.2 pg (28.0-32.0); MEAN CORPUSCULAR HGB CONC 33.7 g/dl (32.0-36.0); MEAN CORPUSCULAR VOLUME 86.6 fl (83.0-99.0); MEAN PLATELET VOLUME 9.7 fl (9.4-12.4); MONOCYTES ABSOLUTE AUTO 0.8 K/mm3 (0.0-0.8); MONOCYTES PERCENT AUTO 8.7 % (0.0-8.0); NEUTROPHILS ABSOLUTE AUTO 6.9 K/mm3 (1.8-7.7); NEUTROPHILS PERCENT AUTO 77.5 % (41.0-71.0); PLATELET COUNT,PLT 185 K/mm3 (150-400); RED BLOOD CELL COUNT 3.43 M/mm3 (4.52-5.90); WHITE BLOOD CELL COUNT,WBC 8.85 K/mm3 (3.9-11.3)
[2024-10-08 06:00] LABS: A/G RATIO 0.9 (1-2); ALBUMIN 2.7 g/dl (3.4-5.0); ANION GAP 11.7 (5-15); BUN/CREATININE RATIO 12.4 (14-18); CALCIUM 9.9 mg/dL (8.5-10.1); CREATININE 1.7 mg/dL (0.7-1.3); EST CRCL DRUG DOSING (CG) 28.67 mL/min; POTASSIUM,K 3.7 mEq/L (3.5-5.1); PROTEIN TOTAL,TP 5.7 g/dl (6.4-8.2)
[2024-10-08] MEDS: Ondansetron 4 MG Tab.DIS PO PRN (08:41)
[2024-10-08] MEDS: Sodium Chloride 0.9% 1,000 ML IV SCH (14:44)
[2024-10-09 05:52] LABS: BASOPHILS PERCENT AUTO 0.2 % (0.0-1.0); EOSINOPHILS ABSOLUTE AUTO 0.2 K/mm3 (0.0-0.4); HEMATOCRIT 28.6 % (42.0-52.0); HEMOGLOBIN 9.6 gm/dl (14.0-18.0); IMMATURE GRAN ABSOLUTE AUTO 0.02 K/mm3 (0.00-0.05); IMMATURE GRAN PERCENT AUTO 0.2 % (0.0-0.4); LYMPHOCYTES ABSOLUTE AUTO 1.4 K/mm3 (1.0-4.8); MEAN CORPUSCULAR HEMOGLOBIN 29.2 pg (28.0-32.0); MEAN CORPUSCULAR HGB CONC 33.6 g/dl (32.0-36.0); MEAN CORPUSCULAR VOLUME 86.9 fl (83.0-99.0); MEAN PLATELET VOLUME 10.1 fl (9.4-12.4); MONOCYTES ABSOLUTE AUTO 0.9 K/mm3 (0.0-0.8); MONOCYTES PERCENT AUTO 9.9 % (0.0-8.0); NEUTROPHILS ABSOLUTE AUTO 6.2 K/mm3 (1.8-7.7); NEUTROPHILS PERCENT AUTO 71.7 % (41.0-71.0); PLATELET COUNT,PLT 186 K/mm3 (150-400); RED BLOOD CELL COUNT 3.29 M/mm3 (4.52-5.90)
[2024-10-09 05:59] LABS: A/G RATIO 0.9 (1-2); ALBUMIN 2.6 g/dl (3.4-5.0); ANION GAP 12.4 (5-15); BILIRUBIN TOTAL 1.1 mg/dL (0.2-1.0); BUN/CREATININE RATIO 12.5 (14-18); CALCIUM 9.4 mg/dL (8.5-10.1); CREATININE 1.6 mg/dL (0.7-1.3); EST CRCL DRUG DOSING (CG) 30.46 mL/min; POTASSIUM,K 3.4 mEq/L (3.5-5.1); PROTEIN TOTAL,TP 5.6 g/dl (6.4-8.2)
[2024-10-09] MEDS: Montelukast 10 MG Tab PO SCH (08:07)
[2024-10-09] MEDS: Potassium Chloride 20 MEQ Tab.ER PO ONE (08:44)
[2024-10-09 14:43] LABS: INTACT PTH 7 pg/mL (15-65)
[2024-10-09] MEDS: Polyethylene Glycol 3350 Powder 17 GM Packet PO SCH (14:47)
[2024-10-10 05:40] LABS: BASOPHILS PERCENT AUTO 0.3 % (0.0-1.0); EOSINOPHILS ABSOLUTE AUTO 0.1 K/mm3 (0.0-0.4); EOSINOPHILS PERCENT AUTO 1.1 % (0.0-6.0); HEMATOCRIT 29.7 % (42.0-52.0); IMMATURE GRAN ABSOLUTE AUTO 0.04 K/mm3 (0.00-0.05); IMMATURE GRAN PERCENT AUTO 0.4 % (0.0-0.4); LYMPHOCYTES PERCENT AUTO 10.6 % (24.0-44.0); MEAN CORPUSCULAR HEMOGLOBIN 29.4 pg (28.0-32.0); MEAN CORPUSCULAR HGB CONC 33.7 g/dl (32.0-36.0); MEAN CORPUSCULAR VOLUME 87.4 fl (83.0-99.0); MEAN PLATELET VOLUME 10.3 fl (9.4-12.4); MONOCYTES ABSOLUTE AUTO 0.8 K/mm3 (0.0-0.8); MONOCYTES PERCENT AUTO 8.1 % (0.0-8.0); NEUTROPHILS ABSOLUTE AUTO 7.8 K/mm3 (1.8-7.7); NEUTROPHILS PERCENT AUTO 79.5 % (41.0-71.0); PLATELET COUNT,PLT 204 K/mm3 (150-400); WHITE BLOOD CELL COUNT,WBC 9.75 K/mm3 (3.9-11.3)
[2024-10-10 06:00] LABS: A/G RATIO 0.9 (1-2); ALBUMIN 2.6 g/dl (3.4-5.0); ANION GAP 10.1 (5-15); BILIRUBIN TOTAL 0.9 mg/dL (0.2-1.0); BUN/CREATININE RATIO 11.2 (14-18); CALCIUM 9.4 mg/dL (8.5-10.1); CREATININE 1.7 mg/dL (0.7-1.3); EST CRCL DRUG DOSING (CG) 28.67 mL/min; POTASSIUM,K 4.1 mEq/L (3.5-5.1); PROTEIN TOTAL,TP 5.5 g/dl (6.4-8.2)
[2024-10-11] MEDS: Latanoprost 0.005% Ophth Soln 2.5 ML Bottle EYEBOTH ONE (14:37)
[2024-10-11] MEDS ORDERED: Latanoprost 0.005% Ophth Soln 2.5 ML Bottle EYEBOTH SCH (21:00)
[2024-10-12] MEDS: Latanoprost 0.005% Ophth Soln 2.5 ML Bottle EYEBOTH SCH (21:10)
[2024-10-13 11:46] LABS: PTH-RELATED PEPTIDE LC-MS/MS 4.7 pmol/L (0.0-2.3)
[2024-10-14 08:35] VITALS: BP 136/70; PULSE 84
== END 2024-10-14 10:57 | DRG 698 ==
LOC: JD.ED 18:49 → JD.MS 10-06 15:41
PROVIDERS: ADMIT Student in an Organized Health Care Education/Training Program; ATTEND Internal Medicine
DX: R62.7 Adult failure to thrive (principal); R53.1 Weakness; R29.6 Repeated falls; I10 Essential (primary) hypertension; N28.89 Other specified disorders of kidney and ureter; J96.01 Acute respiratory failure with hypoxia; J98.11 Atelectasis; N17.9 Acute kidney failure, unspecified; J44.9 Chronic obstructive pulmonary disease, unspecified; H91.90 Unspecified hearing loss, unspecified ear; K59.00 Constipation, unspecified; H54.7 Unspecified visual loss; H40.9 Unspecified glaucoma; E78.00 Pure hypercholesterolemia, unspecified; K21.9 Gastro-esophageal reflux disease without esophagitis; M19.90 Unspecified osteoarthritis, unspecified site; F32.A Depression, unspecified; F15.90 Other stimulant use, unspecified, uncomplicated; E83.52 Hypercalcemia; R59.0 Localized enlarged lymph nodes; R91.1 Solitary pulmonary nodule; Z96.643 Presence of artificial hip joint, bilateral; I12.9 Hypertensive chronic kidney disease with stage 1 through stage 4 chronic kidney disease, or unspecified chronic kidney disease; R53.81 Other malaise; R26.2 Difficulty in walking, not elsewhere classified; R79.89 Other specified abnormal findings of blood chemistry; N13.30 Unspecified hydronephrosis; R13.10 Dysphagia, unspecified; N42.9 Disorder of prostate, unspecified; E86.0 Dehydration; N18.4 Chronic kidney disease, stage 4 (severe); Z85.840 Personal history of malignant neoplasm of eye; Z88.5 Allergy status to narcotic agent; Z79.899 Other long term (current) drug therapy; Z79.60 Long term (current) use of unspecified immunomodulators and immunosuppressants; Z98.890 Other specified postprocedural states; Z86.79 Personal history of other diseases of the circulatory system
CPT/HCPCS: 36415 ×2; 70450; 74177; 80048; 80053; 81001; 82550; 83690; 83735; 83880; 84484; 85025; 87428; 93005; J2270; J2405; J3480 ×4; J7030 ×2; Q9967; 71045; 71045-26; 82542; 83970; 93010; 94667; 94668; 94760; 94761; 97110-GP; 97116-GP; 97161-GP; 97530-GP; 99223; 99231; 99232; 99233; 99239; 99284; A9270-GY; J1650; U0002

== ENCOUNTER 2024-11-04 14:45 | Emergency (ER) | payer MEDICARE, MEDICAID ==
[2024-11-04 14:54] VITALS: BP 127/58; PULSE 93
[2024-11-04] MEDS: Sodium Chloride 0.9% 10 ML Syringe FLUSH PRN (15:26)
[2024-11-04] MEDS: HYDROmorphone 0.5 MG/0.5 ML Syringe IVPUSH ONE ×2 (15:26→16:11)
[2024-11-04] MEDS: Ondansetron 4 MG/2 ML SDV IVPUSH ONE (15:26)
[2024-11-04 15:32] LABS: BASOPHILS ABSOLUTE AUTO 0.1 K/mm3 (0.0-0.2); BASOPHILS PERCENT AUTO 0.4 % (0.0-1.0); EOSINOPHILS PERCENT AUTO 0.2 % (0.0-6.0); HEMATOCRIT 33.2 % (42.0-52.0); IMMATURE GRAN PERCENT AUTO 0.6 % (0.0-0.4); LYMPHOCYTES PERCENT AUTO 11.8 % (24.0-44.0); MEAN CORPUSCULAR HEMOGLOBIN 28.8 pg (28.0-32.0); MEAN CORPUSCULAR HGB CONC 33.1 g/dl (32.0-36.0); MEAN CORPUSCULAR VOLUME 86.9 fl (83.0-99.0); MEAN PLATELET VOLUME 10.4 fl (9.4-12.4); MONOCYTES PERCENT AUTO 5.7 % (0.0-8.0); NEUTROPHILS ABSOLUTE AUTO 13.7 K/mm3 (1.8-7.7); NEUTROPHILS PERCENT AUTO 81.3 % (41.0-71.0); PLATELET COUNT,PLT 305 K/mm3 (150-400); RED BLOOD CELL COUNT 3.82 M/mm3 (4.52-5.90); WHITE BLOOD CELL COUNT,WBC 16.79 K/mm3 (3.9-11.3)
[2024-11-04 15:57] LABS: A/G RATIO 0.7 (1-2); ALBUMIN 2.9 g/dl (3.4-5.0); ANION GAP 15.6 (5-15); BILIRUBIN TOTAL 0.8 mg/dL (0.2-1.0); BUN/CREATININE RATIO 19.4 (14-18); C-REACTIVE PROTEIN 8.26 mg/dL (<0.30); CALCIUM 11.1 mg/dL (8.5-10.1); CREATININE 1.6 mg/dL (0.7-1.3); EST CRCL DRUG DOSING (CG) 29.32 mL/min; MAGNESIUM 1.6 mg/dL (1.8-2.4); POTASSIUM,K 4.6 mEq/L (3.5-5.1); PROTEIN TOTAL,TP 7.1 g/dl (6.4-8.2)
[2024-11-04] MEDS: Iopamidol 755 Mg/ML 100 ML Bottle IVPUSH ONE (16:24)
[2024-11-04] MEDS ORDERED: Sodium Chloride 0.9% 100 ML IV SCH (16:30)
[2024-11-04] MEDS: Apixaban 5 MG Tab PO ONE (18:09)
== END 2024-11-04 18:50 | disposition home or self-care (01) ==
LOC: JD.ED 14:45
DX: I26.99 Other pulmonary embolism without acute cor pulmonale (principal); I10 Essential (primary) hypertension; J44.9 Chronic obstructive pulmonary disease, unspecified; E78.00 Pure hypercholesterolemia, unspecified; K21.9 Gastro-esophageal reflux disease without esophagitis; Z79.899 Other long term (current) drug therapy; Z79.01 Long term (current) use of anticoagulants; Z88.5 Allergy status to narcotic agent
CPT/HCPCS: 36415; 71045; 71045-26; 71275; 71275-26; 80053; 83735; 84484; 85025; 86140; 87428-QW; 93005; 96374; 96375; 96376; 99285-25; A9270-GY; J2405; Q9967